=== PATIENT | male | born 1965 | race Asian ===

== ENCOUNTER 2022-06-16 03:49 | Inpatient (IN) | payer OTHER, SELFPAY ==
[2022-06-16] VITALS (21 sets, daily range): BP systolic 100–143; BP diastolic 53–94; PULSE 71–124; RESP 16–28; TEMP 36.3–37.3; O2SAT 93–99; BMI 22.8
--- NOTE | ~2022-06-16 | XR_ITS ---
EXAMINATION: XR chest 1V portable DATE: 06/19/2022 11:58 INDICATION: Pneumonia. TECHNIQUE: A single frontal view of the chest was obtained. COMPARISON: Chest CT 06/16/2022 FINDINGS: There is no pneumonia, pleural effusion, or pneumothorax. The heart size is normal. IMPRESSION: 1. No acute cardiopulmonary disease. Reviewed, dictated and finalized at location A. GRINDER
--- NOTE | ~2022-06-16 | CT_ITS ---
EXAMINATION:CT chest high resolution wo co DATE: 06/16/2022 09:58 INDICATION: Respiratory distress. TECHNIQUE: Computed tomography (CT) of the chest was performed without intravenous contrast. Automate d exposure control and iterative reconstruction technique were employed. The dose-length product (DLP ) was 159.50 mGy-cm. COMPARISON: Chest single view 06/16/2022 FINDINGS: Motion artifact is noted. There is mild atelectasis in left lower lobe. No pleural effusion . The heart size is normal. No pericardial effusion. There is mild thoracic spondylosis. There is mil d chronic anterior wedging of T11-L1 vertebral bodies. IMPRESSION: 1. No etiology for the patient's symptoms. Reviewed, dictated and finalized at location A. ERTY MANAGER
--- NOTE | ~2022-06-16 | XR_ITS ---
EXAMINATION: XR chest 1V portable Exam Date/Time: 06/16/2022 21:15 CLOTH SANDER HISTORY: SUDDEN shortness of breath Comparison: Same date at 5:10 AM. RESULT: Lines, tubes, and devices: None. Lungs and pleura: Clear. Cardiomediastinal silhouette: Stable. Other: No acute osseous or upper abdominal finding. IMPRESSION: No acute cardiopulmonary process. No significant interval change. Reviewed, dictated and finalized at location K. H SANDER
--- NOTE | ~2022-06-16 | US_ITS ---
EXAMINATION: US venous doppler UE DATE: 06/21/2022 13:21 INDICATION: Arm pain and swelling TECHNIQUE: Vasquez scale images with and without compression and Doppler images of the bilateral upper e xtremity veins were obtained. COMPARISON: None. FINDINGS: The right and left internal jugular vein, subclavian vein, axillary vein, brachial veins, basilic vei n, radial vein, and ulnar vein are patent. There is thrombosis of bilateral cephalic veins. IMPRESSION: 1. Bilateral cephalic vein thrombosis. Reviewed, dictated and finalized at location A. CULTURE TEACHER
--- NOTE | ~2022-06-16 | XR_ITS ---
EXAMINATION: XR chest 1V portable DATE: 06/16/2022 05:45 INDICATION: Shortness of breath. TECHNIQUE: A single frontal view of the chest was obtained. COMPARISON: None. FINDINGS: The chest demonstrates clear lungs without pneumonia, pleural effusion, or pneumothorax. Th e heart size is normal. IMPRESSION: 1. No acute cardiopulmonary disease. Reviewed, dictated and finalized at location A. ER OPERATOR
--- NOTE | ~2022-06-16 | CT_ITS ---
EXAMINATION: CT abdomen pelvis wo con DATE: 06/16/2022 09:58 INDICATION: Respiratory distress. Diarrhea. TECHNIQUE: Computed tomography (CT) of the abdomen and pelvis was performed without intravenous contr ast. Automated exposure control and iterative reconstruction technique were employed. The dose-length product was 296.78 mGy-cm. COMPARISON: None. FINDINGS: The visualized portions of the lung bases demonstrate mild atelectasis in left lower lobe. No pleural effusion. Motion artifact is noted. The liver, gallbladder, spleen, pancreas, adrenal glan ds, and left kidney are normal. There is a 1.8 cm cyst in right kidney. There is no urolithiasis. The prostate is mildly enlarged. There are no dilated loops of bowel. The appendix is normal. There are no pathologically enlarged lymph nodes. There is no free intraperitoneal fluid. There is mild thoraco lumbar spondylosis. IMPRESSION: 1. No etiology for the patient's symptoms. Reviewed, dictated and finalized at location A. NT KILN OPERATOR
--- NOTE | ~2022-06-16 | CT_ITS ---
EXAMINATION: CTA chest PE protocol DATE: 06/16/2022 23:31 INDICATION: Shortness of breath. Tachycardia. TECHNIQUE: Computed tomography angiography (CTA) of the chest was performed with 100 mL Omnipaque-350 intravenous contrast timed to evaluate the pulmonary arteries. Coronal maximum intensity projection 3D-reconstructions were created by the technologist. Automated exposure control and iterative reconst ruction technique were employed. The dose-length product was 239.32 mGy-cm. COMPARISON: Chest CT 06/16/2022 FINDINGS: There is mild emphysema. Motion artifact is noted. There is mild atelectasis bilaterally. T here are mild groundglass opacities in the upper lobes. No pleural effusion. The heart size is normal . No pericardial effusion. Calcified mediastinal lymph nodes are consistent with old granulomatous di sease. There is no pulmonary embolus. There is mild thoracic spondylosis. There is mild chronic anter ior wedging of T12-L2 vertebral bodies. IMPRESSION: 1. No pulmonary embolus. Sensitivity is severely decreased by motion artifact. 2. Mild emphysema. 3. New mild groundglass opacities in the upper lobes, consistent with atelectasis versus pneumonia. Reviewed, dictated and finalized at location A. ER FINISHER IMPRESSION: 1. No pulmonary embolus. Sensitivity is severely decreased by motion artifact. 2. Mild emphysema. 3. New mild groundglass opacities in the upper lobes, consistent with atelectas is versus pneumonia.
[2022-06-16] MEDS: IPRATROPIUM BR 0.02% INH SOLN 0.5 MG/2.5 ML VIAL INHALATION (04:08)
[2022-06-16] MEDS: ALBUTEROL SULFATE NEB 2.5 MG/3 ML INH INHALATION (04:08)
--- NOTE | 2022-06-16 04:10 | ADMGEN ---
This patient, Fuentes Yañez, was admitted to Medical Room 243-. Patient/family oriented to hospital policies and general routines including ID bracelet, bed and alarms, visiting hours, pain management, procedures, bathroom and other care routines, personal items, smoking policy, room service/diet, and visiting hours. Information on how to activate the Rapid Response Team has been discussed. Patient/Family are encouraged to report perceived risks to care and to ask questions if they do not understand what they are told or what they should do.
--- NOTE | 2022-06-16 04:32 | ECG_ITS ---
Measurements Intervals [place] Rate: 118 P: 75 IN: 112 QRS: 82 QRSD: 98 T: 71 QT: 351 QTc: 492 Interpretive Statements SINUS TACHYCARDIA WITH SHORT IN INTERVAL POSSIBLE LEFT ATRIAL ENLARGEMENT INCOMPLETE RIGHT BUNDLE BRANCH BLOCK ABNORMAL ECG NO PREVIOUS ECG AVAILABLE FOR COMPARISON Electronically Signed On 06-16-2022 9:19:24 ASSISTANT ELEMENTARY TEACHER by Osito Bowen D.O.
--- NOTE | 2022-06-16 04:32 | PM.IMHP ---
H&P: HPI History of Present Illness Date/Time: 06/16/22 04:32 Chief Complaint: shortness of breath Narrative: This is a 56-year-old male with known significant past medical history, tobacco dependence, patient is a current everyday smoker of 1 pack a day was on his way back to [place] from [place] after participating in some sort of celebration on his way back became suddenly ill with shortness of breath and cough and presented to outside hospital was transferred to our facility. Patient has been in his usual state of health denies any fevers, rigors, chills, fevers, nausea, vomiting, abdominal pain, diarrhea, calves pain, no dizziness, no lightheadedness, no near syncope, no syncope, no chest pain. patient has had a cough which is wet but no sputum production says that has some a scanty sputum which is clear. Patient had a normal D-dimer at outside hospital and tested negative for COVID-19. Patient is been admitted for further evaluation management and treatment. Review of Systems Review of Systems: Sudden onset of shortness of breath, cough. Constitutional: Constitutional: Denies chills, Denies fever(s), Denies night sweats and Denies poor appetite Eyes: Eyes: Denies change in vision ENT: Denies dysphagia, Denies vertigo, Denies dizziness and Denies odynophagia Cardiovascular: Cardiovascular: Denies chest pain, Denies irregular heart rhythm, Denies leg edema, Denies lightheadedness and Denies palpitations Respiratory: Respiratory: Denies change in phlegm color, Reports chest congestion, Reports cough, Denies excessive phlegm production, Reports pain on inspiration, Reports dyspnea and Reports wheezing Gastrointestinal: Gastrointestinal: Denies abdominal pain, Denies dyspepsia, Denies heartburn, Denies diarrhea, Denies nausea and Denies vomiting Genitourinary: Genitourinary: Reports no additional male genitourinary complaints and Reports as per HPI Musculoskeletal: Musculoskeletal: Denies back pain, Denies myalgias, Denies joint swelling, Denies limited range of motion and Denies muscle weakness Integumentary/Breasts: Skin/Breast: Denies rash Neurologic: Denies vertigo, Denies dizziness, Denies focal weakness and Denies Sensory deficit (Neuro) Psychiatric: Psychiatric: Reports no additional psychiatric complaints and Reports as per HPI Endocrine: Endocrine: Denies cold intolerance, Denies flushing, Denies heat intolerance, Denies polyphagia, Denies polydipsia and Denies palpitations Hematologic/Lymphatic: Hematologic/Lymphatic: Reports no additional hematologic/lymphatic complaints and Reports as per HPI Allergic/Immunologic: Allergic/Immunologic: Reports no additional allergic/immunologic complaints and Reports as per HPI [facility] Family History Family History (Updated 06/16/22 @ 04:13 by Mesha Alvarado RN) Father Cerebrovascular accident Diabetes mellitus Mother Diabetes mellitus Social History Social History Smoking packs per day: 0.5 Smoking cigarettes per day: 10.0 Smoking status: Current every day smoker Alcohol intake: current Drinks per week: 2 Substance use: never Lack of Transportation: No Lack of Food: Never True Current Housing: I Have Housing Concerned About Future Housing: No Difficulty Paying Gas/Electric Bills: No Difficulty Paying for Meds: No Currently Unemployed: No Education: Associate Degree Difficulty w/ Childcare or Family Care: No Spiritual care concerns: No Meds Home Medications and Allergies Home Medications Medication Instructions Recorded Confirmed Type No Home Medications 06/16/22 06/16/22 History Allergies Allergy/AdvReac Type Severity Reaction Status Date / Time No Known Allergies Allergy Verified 06/16/22 04:43 Vital Signs Vital Signs - 24 hr 06/16/22 04:20 06/16/22 04:02 06/16/22 04:08 Temperature 98.1 F Pulse Rate 107 H 99 Respiratory Rate 22 H 22 H Blood Pressure 143/94 H Pulse Oximetry
[2022-06-16] MEDS: IPRATROPIUM BR 0.02% INH SOLN 0.5 MG/2.5 ML VIAL 1.5 MG INHALATION (04:38)
[2022-06-16] MEDS: ALBUTEROL SULFATE NEB 2.5 MG/3 ML INH 10 MG INHALATION (04:38)
[2022-06-16 05:28] LABS: Basophils Absolute Auto 0.1 K/mm3 (0.0-0.1); Basophils Percent Auto 0.4 % (0.2-1.2); Hematocrit 45.4 % (42.0-52.0); Hemoglobin 14.6 g/dL (14.0-18.0); Immature Granulocyte Absolute 0.06 K/mm3 (0.00-0.031); Immature Granulocyte Percent A 0.4 % (0-0.5); Lymphocytes Absolute Auto 0.76 K/mm3 (0.9-3.2); Lymphocytes Percent Auto 5.3 % (18.3-44.2); Mean Corpuscular HGB Conc 32.2 g/dl (32-36); Mean Corpuscular Volume 96.4 fl (80-100); Mean Platelet Volume 11.1 fl (7.4-10.4); Monocytes Absolute Auto 0.2 K/mm3 (0.1-0.6); Monocytes Percent Auto 1.3 % (2.6-8.5); Neutrophils Absolute Auto 13.2 K/mm3 (1.3-6.7); Neutrophils Percent Auto 92.6 % (45.5-73.1); Platelet Count Result 222 k/mm3 (150-375); Red Blood Count 4.71 M/mm3 (4.6-6.20); White Blood Count 14.2 K/mm3 (4.5-10.0)
[2022-06-16 05:34] LABS: Anion Gap 16 mmol/L (8-16); Blood Urea Nitrogen 13 mg/dL (9-20); Calcium 8.6 mg/dL (8.4-10.2); Carbon Dioxide 17 mmol/L (22-30); Chloride 105 mmol/L (98-107); Estimated CRCL calculation 111 ml/min; Estimated Glomerular Filt Rate > 60; Glucose 172 mg/dL (65-110); Potassium 4.1 mmol/L (3.4-5.0); Sodium 138 mmol/L (137-145)
[2022-06-16] MEDS: methylPREDNISolone SOD SUCC 125 MG VIAL IV PUSH (05:51)
[2022-06-16 06:09] LABS: Influenza A QL RT-PCR Negative (Negative); Influenza B QL RT-PCR Negative (Negative); SARS-CoV-2 RNA PCR Negative
[2022-06-16 06:19] LABS: Lactic Acid Reflex 5.5 mmol/L (0.7-2.0)
[2022-06-16] MEDS: SODIUM CHLORIDE 0.9% IV 1,000 ML 999 ML IV CONT (06:35)
[2022-06-16 08:00] LABS: Procalcitonin 0.1 ng/mL
[2022-06-16 08:17] LABS: Reflex Lactic Acid Yes or No Add Lactic
[2022-06-16 08:55] LABS: Bacteria Urine Trace /hpf; Mucus Urine Rare /lpf; RBC Urine 0-2 /hpf (0-2); WBC Urine 0-3 /hpf
[2022-06-16 09:00] LABS: Appearance Urine Clear (Clear); Bilirubin Urine Negative (Negative); Blood Urine Trace-lysed (Negative); Color Urine Yellow (Yellow); Glucose Urine UA 1+ mg/dL (Negative); Ketones Urine Trace mg/dL (Negative); Leukocyte Esterase Ur Negative LEU/UL (Negative); Nitrate Urine Negative (Negative); Protein Urine Negative (Negative); Specific Grav Ur 1.025 (1.001-1.035); Urobilinogen Urine 0.2 mg/dL (<2.0)
--- NOTE | 2022-06-16 09:03 | PM.IMPN ---
Progress Note: A&P Assessment and Plan (1) Acute respiratory failure with hypoxia: Code(s): J96.01 - Acute respiratory failure with hypoxia Status: Acute Assessment and Plan: On supplemental oxygen try and keep oxygen saturation 94% Patient's O2 increased to 4 L to maintain saturation in the 90s. CT chest abdomen and pelvis no acute findings. CTA negative BNP 283 Procalcitonin 0.1 UA: Negative Troponin negative Sputum culture ordered EKG revealed sinus tachycardia, possible left atrial enlargement, incomplete RBBB Echo pending D-dimer .28 Group a strep PCR: EKG revealed sinus tachycardia, possible left atrial enlargement, incomplete RBBB ABG critical values: PO2 46.3, O2 sat 81.3, oxyhemoglobin 81.4 ---patient on 4 L of O2 Consulted Wilberto and he recommended Rocephin, doxy and vancomycin Pulmonology ordered MRSA culture and RSV; wants repeat COVID in flu tomorrow CBC CMP ordered for morning Patient moved to IMU room 211 (2) COPD with acute exacerbation: Code(s): J44.1 - Chronic obstructive pulmonary disease with (acute) exacerbation Status: Acute Assessment and Plan: admit to regular medical floor breathing treatments every 4 hours and p.r.n. breathing treatments every 2 hours Methylprednisolone sodium succinate 60 mg IV push q.8 hours systemic steroids supplemental oxygen to keep oxygen saturation 94% (3) Tobacco dependence: Code(s): F17.200 - Nicotine dependence, unspecified, uncomplicated Status: Acute Assessment and Plan: nicotine patch as needed Time Spent With Patient Time with patient: Greater than 35 minutes Subjective Date/time seen: 06/16/22 09:03 Interval history: 06/16/22 @ 0900 56-year-old man with a history of chronic tobacco use patient smokes 1 pack of cigarettes per day. Patient denies IV drug use and street drug use. Occasionally drinks alcohol. Patient states that he has been short of breath since 06/13/2022 it has progressively worsened over the past several days. He has been experiencing orthopnea, shortness of breath while standing, sitting, and walking. Patient has rattling when he breathes that is audible when interviewing the patient he states that this started on 06/14/2022. Patient does have a nonproductive wet cough and a sore throat. Patient had experienced some diarrhea for couple days but is not having it today. Patient states that he has had an increase of urinary frequency without dysuria. Denies fever. Review of Systems Review of Systems: All systems reviewed & are unremarkable except as noted in HPI and below Exam Narrative: GENERAL: Acute distress, uncomfortable HENMT: moist mucous membranes, no JVD, poor dentition EYES: EOM intact b/l, PERRL NECK: no lymphadenopathy RESPIRATORY: Diffuse respiratory crackles CARDIO: RRR GI: soft, nontender, bowel sounds present SKIN/NAILS: no rashes, no nail clubbing or splinter hemorrhages present EXTREMITIES: no edema, redness or tenderness Objective Data Vital Signs Vital Signs: Vital Signs - 24 hr 06/16/22 04:20 06/16/22 04:02 06/16/22 04:08 Temperature 98.1 F Pulse Rate 107 H 99 Respiratory Rate 22 H 22 H Blood Pressure 143/94 H Pulse Oximetry 96 96 Oxygen Delivery Nasal Cannula Oxygen Flow Rate 2 Fraction of Inspired Oxygen 06/16/22 04:38 06/16/22 05:17 06/16/22 06:24 Temperature Pulse Rate 109 H 109 H 121 H Respiratory Rate 22 H 22 H Blood Pressure Pulse Oximetry 94 Oxygen Delivery Nasal Cannula Oxygen Flow Rate 2 Fraction of Inspired Oxygen 28 Intake/Output Intake/Output: Intake & Output 06/13/22 06/14/22 06/15/22 06/16/22 23:59 23:59 23:59 23:59 Intake Total 1150 Output Total 400 Balance 750 Meds/Results Medications: Active Medications Generic Name Dose Route Start Last Admin Trade Name Freq PRN Reason Stop Dose Admin Acetaminophen 650 mg 06/16/22 04:29 Acetaminophen 325
[2022-06-16 09:07] LABS: Add Urine Microscopic? YES
[2022-06-16 09:12] LABS: Lactic Acid 9.1 mmol/L (0.7-2.0)
[2022-06-16 09:22] LABS: Troponin I < 0.012 ng/mL (0.000-0.034)
[2022-06-16] MEDS: DOXYCYCLINE 100 MG/NS 100 ML 100 MG/100 ML BAG IVPB (10:20)
[2022-06-16] MEDS: cefTRIAXone 2 GM in SODIUM CHLORIDE 0.9% IV 100 ML 200 ML IVPB (10:20)
--- NOTE | 2022-06-16 10:48 | ECHO_ITS ---
Patient Info Name: Fuentes Yañez Age: 56 years : 1965 Gender: Male Ht: 72 in Wt: 168 lbs BSA: 1.97 m2 HR: 107 bpm BP: 116 / 65 mmHg Heart Rhythm: Sinus Rhythm Exam Date: 06/16/2022 1:37 PM Exam Location: [facility] Patient Status: Inpatient Admit Date: 06/16/2022 Staff Ordering Physician: Elliott Lenz MD Yard Operator: Ed Armijo, JENNIFER, RT Attending Provider: Sathish Amanda MD Referring Physician: Delfin [place]; Exam Type: CA echo doppler color flow Study Info Indications R06.02 - Shortness of breath Complete two-dimensional, color flow and Doppler transthoracic echocardiogram is performed. Strain analysis performed. Summary 1. Complete two-dimensional, color flow and Doppler transthoracic echocardiogram is performed. 2. Left ventricular chamber dimension is normal. 3. Left ventricular systolic function is hyperdynamic, estimated at >70%. 4. There is no increased left ventricular wall thickness. 5. The left ventricular diastolic function is abnormal. Left Ventricle Left ventricular chamber dimension is normal. Left ventricular systolic function is hyperdynamic, estimated at >70%. There is no increased left ventricular wall thickness. The left ventricular diastolic function is abnormal. Right Ventricle Right ventricular chamber dimension is normal. Right ventricular systolic function is normal. Left Atria Left atrial chamber dimension is normal. Right Atria Right atrial chamber dimension is normal. Atrial Septum Intact interatrial septum visualized by color flow imaging. Aortic Valve The aortic valve is not well visualized. There is no aortic valve stenosis. There is trace aortic valve regurgitation. Pulmonic Valve The pulmonic valve is not well visualized. There is no pulmonic valve stenosis. Mitral Valve The mitral valve has normal leaflets. There is no mitral valve stenosis. There is trace mitral valve regurgitation. Tricuspid Valve The tricuspid valve leaflets are normal. There is no significant tricuspid valve stenosis. There is trace tricuspid valve regurgitation. Pericardium/Pleural The pericardium appears normal. There is no pericardial effusion. Inferior Vena Cava Normal inferior vena cava with >50% collapse upon inspiration consistent with normal right atrial pressure, 5 mmHg. Aorta The aortic root size at the sinus of Valsalva is not well visualized. Tricuspid Valve Name Value Normal Estimated PAP/RSVP RA Pressure 5 mmHg <=5 Report Signatures
--- NOTE | 2022-06-16 11:03 | ECG_ITS ---
Measurements Intervals [place] Rate: 108 P: 72 IA: 148 QRS: 79 QRSD: 97 T: 76 QT: 273 QTc: 366 Interpretive Statements SINUS TACHYCARDIA NONSPECIFIC T-WAVE ABNORMALITY- INFERIOR LEADS BASELINE ARTIFACT- V1 ABNORMAL ECG COMPARED TO ECG 06/16/2022 05:06:29 T-WAVE ABNORMALITY NOW PRESENT Electronically Signed On 06-16-2022 14:06:52 PUBLIC HEALTH REPRESENTATIVE by Osito Bowen D.O.
[2022-06-16 11:23] LABS: Alveolar/Arterial O2 Gradient 143.3 mmHg; Fractional Inspired Oxygen 32 %; HCO3 ABG 18.4 mEq/l (22.0-26.0); Oxygen Content ABG 16.3 %vol (16.0-22.0); PO2 FiO2 Ratio Arterial Blood 1.45 %; Total Hemoglobin 14.3 g/dL (12.0-18.0); pH ABG 7.363 (7.350-7.450)
[2022-06-16 11:30] LABS: Oxygen Saturation ABG 81.3 % (95.0-100.0); Oxyhemoglobin 81.4 % THb (90.0-100.0); PO2 ABG 46.3 mmHg (80.0-100.0)
[2022-06-16 11:31] LABS: Device NASAL CANNULA; Modified Allen's Test Pass; Site Drawn RIGHT RADIAL
--- NOTE | 2022-06-16 11:44 | PM.CNPUL ---
Assessment and Plan Assessment and plan (1) Acute respiratory failure with hypoxia: Code(s): J96.01 - Acute respiratory failure with hypoxia Status: Acute Assessment and Plan: this 56-year-old man with a history of MS currently on no immunosuppressive agents presented with acute respiratory illness characterized by cough, severe shortness of breath, with expiratory wheezing bilaterally, hypoxemia, and no evidence of infiltrates on chest imaging studies. Furthermore, screening for influenza and COVID-19 are negative. The patient's presentation in conjunction with the auscultatory findings and chest imaging studies suggest acute viral infection with bronchospasm. As stated the patient has been exposed to sick contacts approximately 3 days ago. He will be tested for RSV infection,, which could explain most symptoms and findings. patient was given nebulized Xopenex treatment with improvement of his bronchospasm. His gas exchange also improved following nebulized treatment. Plan: Will continue with nebulized short-acting bronchodilators q.4 hours and also p.r.n. treatment in between standard nebulized treatment if patient has dyspnea. Patient was switched to IV steroids. Oral prednisone has been discontinued. He will have ECG and echocardiogram. Will repeat testing for influenza and COVID-19 infection in a day or so. Continue with current antibiotics for now while waiting for MRSA screening. Doxycycline has been discontinued. The patient should be started on DVT prophylaxis. I would suggest to transfer patient to IMU for better monitoring of his respiratory status. (2) Tobacco dependence: Code(s): F17.200 - Nicotine dependence, unspecified, uncomplicated Status: Acute (3) History of multiple sclerosis: Code(s): G35 - Multiple sclerosis Status: Acute History of Present Illness History of Present Illness Consult date: 06/16/22 Chief complaint: pneumonia, covid negative Narrative: This 56-year-old man was admitted to the hospital with a 2 day history of progressively increasing shortness of breath. The patient has history of MS and had been on Tecfidera twice daily until mid December of 2021. This man who is out of state and was in his usual state of health travelled to [place] from [place] for a wedding. He reportedly exposed to sick people with upper respiratory infection. Specifically his sister had an upper respiratory infection. The patient was driving back to his home state yesterday when he started to have intense cough. Cough had been mostly dry. He had no fever chills hemoptysis chest pain or palpitations. Few hours later, he started to complain of shortness of breath. The shortness of breath got progressively worse and the patient was evaluated at another nearby hospital where he underwent testing with chest X ray. He was found to be hypoxemic with elevated lactic acid and chest x-ray showing no active lung disease. The patient received IV steroids and nebulized short-acting bronchodilators. reportedly, his shortness of breath improved with nebulized short-acting bronchodilators. The patient was then transferred to this hospital. Currently, he has been complaining of shortness of breath but has no orthopnea, chest pain or palpitations. Chest imaging studies including CT without contrast were unremarkable. No CTA was done as patient had normal D-dimers at the other place. His BNP was not elevated when tested at the other hospital. His lactic acid was found again to be elevated. Abdominal and pelvic CT were unremarkable. The patient has been on treatment with oral steroids, nebulized short-acting bronchodilators and four antibiotics. Arterial blood gases showed severe hypoxemia but no evidence of hypercapnia. The patient has been a smoker for many years. He has had multiple sclerosis for years. Since December of this year, he has been on no immuno modulating medications. He has no
[2022-06-16] MEDS: LORazepam (*CRX) 0.5 MG TABLET PO (11:45)
[2022-06-16] MEDS: SODIUM CHLORIDE 0.9% IV 1,000 ML 75 ML IV CONT (11:45)
[2022-06-16] MEDS: ENOXAPARIN 40 MG/0.4 ML SYRINGE SUB-Q (11:47)
[2022-06-16 11:56] LABS: NT Pro B Type Natriuretic Pept 283 pg/mL (5-100)
[2022-06-16 12:22] LABS: Lactic Acid Reflex 5.1 mmol/L (0.7-2.0)
[2022-06-16 12:29] LABS: D Dimer 0.28 ug/mL (<0.48)
--- NOTE | 2022-06-16 13:56 | PC.NURSE ---
Pt assisted to restroom on 3L nasal cannula, worsening SOB upon ambulation, O2 increased to 4L, pt still had a hard time recovering when back in bed. Per Ambika CHAUDHARI and Dr. Lenz, pt should not be up ambulating until respiratory status is improving. Pt was educated on this and is not wanting to comply, states he needs to walk to the bathroom and have a few minutes . Is not willing to use urinal at bedside or be assisted to a bedside commode
[2022-06-16] MEDS: methylPREDNISolone SOD SUCC 125 MG VIAL 60 MG IV PUSH ×2 (14:26→21:16)
--- NOTE | 2022-06-16 14:33 | PC.NURSE ---
This patient, Fuentes Yañez, was transferred to [facility] on 06/16/22 at 1434. Personal belongings sent with patient. Report given to Alisha COLE. Appropriate documentation sent with patient.
--- NOTE | 2022-06-16 14:41 | PC.NURSE ---
This patient, Fuentes Yañez, was received from [ [phone]] on 06/16/22 at 1441. Patient/family oriented to unit policies and routines
[2022-06-16 15:58] LABS: Strep Group A RT-PCR Negative (Negative)
[2022-06-16 16:20] LABS: RSV RNA, RT-PCR Negative (Negative)
[2022-06-16 17:12] LABS: Lactic Acid Reflex 2.1 mmol/L (0.7-2.0)
[2022-06-16 20:05] LABS: Lactic Acid Reflex 2.6 mmol/L (0.7-2.0)
--- NOTE | 2022-06-16 22:33 | P.PNCROSS_ITS ---
Event Note Event Note Event Note: Multiple calls from the patient's RN this evening with patient complaining ongo ing, significant shortness of breath with an otherwise negative workup. He has been tachycardic in the 1 teens and tachypneic in the mid to upper 20s. Repeat chest x-ray was unremarkable. Given his recent travel (although he did have a negative D-dimer) CTA of the chest has been ordered to rule out pulmonary embolism as there is not any other evidence to suggest why he would be feeling so short of breath.
[2022-06-16 22:53] LABS: Reflex Lactic Acid Yes or No Add Lactic
[2022-06-17] VITALS (24 sets, daily range): BP systolic 94–145; BP diastolic 40–78; PULSE 66–102; RESP 18–26; TEMP 36–36.8; O2SAT 94–98
[2022-06-17] MEDS: methylPREDNISolone SOD SUCC 125 MG VIAL 60 MG IV PUSH ×3 (06:19→21:08)
[2022-06-17 08:08] LABS: Basophils Percent Auto 0.1 % (0.2-1.2); Hematocrit 40.1 % (42.0-52.0); Hemoglobin 13.5 g/dL (14.0-18.0); Immature Granulocyte Absolute 0.25 K/mm3 (0.00-0.031); Immature Granulocyte Percent A 0.9 % (0-0.5); Lymphocytes Absolute Auto 1.11 K/mm3 (0.9-3.2); Lymphocytes Percent Auto 4.2 % (18.3-44.2); Mean Corpuscular HGB Conc 33.7 g/dl (32-36); Mean Corpuscular Hemoglobin 31.7 pg (26-34); Mean Corpuscular Volume 94.1 fl (80-100); Mean Platelet Volume 10.7 fl (7.4-10.4); Monocytes Absolute Auto 1.1 K/mm3 (0.1-0.6); Monocytes Percent Auto 4.3 % (2.6-8.5); Neutrophils Absolute Auto 24.2 K/mm3 (1.3-6.7); Neutrophils Percent Auto 90.5 % (45.5-73.1); Platelet Count Result 227 k/mm3 (150-375); Red Blood Count 4.26 M/mm3 (4.6-6.20); Red Cell Distribution Width 13.7 % (11.5-14.5); White Blood Count 26.7 K/mm3 (4.5-10.0)
[2022-06-17 08:28] LABS: Alanine Aminotransferase 27 U/L (6-50); Albumin Level 4.1 g/dL (3.5-5.1); Alkaline Phosphatase 82 U/L (38-126); Anion Gap 6 mmol/L (8-16); Aspartate Amino Transferase 32 U/L (17-59); Bilirubin,Total 0.3 mg/dL (0.2-1.3); Blood Urea Nitrogen 20 mg/dL (9-20); Calcium 8.8 mg/dL (8.4-10.2); Carbon Dioxide 22 mmol/L (22-30); Chloride 107 mmol/L (98-107); Estimated CRCL calculation 111 ml/min; Estimated Glomerular Filt Rate > 60; Glucose 136 mg/dL (65-110); Potassium 4.2 mmol/L (3.4-5.0); Sodium 135 mmol/L (137-145)
--- NOTE | 2022-06-17 08:53 | PM.PNPUL ---
Progress Note: A&P Assessment and Plan (1) Acute respiratory failure with hypoxia: Code(s): J96.01 - Acute respiratory failure with hypoxia Status: Acute Assessment and Plan: This 56-year-old man with a history of smoking for many years, history of multiple sclerosis has been treated for acute respiratory failure with hypoxemia and essentially negative chest imaging studies and evidence of severe bronchospasm on physical exam. Tests for influenza COVID RSV all negative. Has been on antibiotics and IV steroids and nebulized short-acting bronchodilators every 4 hours. On physical exam today he still has wheezing but there is better air entry. Tiny ground-glass infiltrates on last chest CT of unclear significance. There is mild emphysema on chest CT. Most likely diagnosis is viral illness with severe bronchitis /bronchospasm in a smoker patient who has evidence of mild emphysema on chest x-ray. Plan: Will continue with the current regimen of IV steroids and nebulized short-acting bronchodilators for now. Continue with DVT prophylaxis. Vancomycin was discontinued and the patient was started on Zithromax to cover atypicals. (2) COPD with acute exacerbation: Code(s): J44.1 - Chronic obstructive pulmonary disease with (acute) exacerbation Status: Acute (3) Tobacco dependence: Code(s): F17.200 - Nicotine dependence, unspecified, uncomplicated Status: Acute (4) History of multiple sclerosis: Code(s): G35 - Multiple sclerosis Status: Acute Subjective Date/time seen: 06/17/22 08:53 Had more shortness of breath last night. Underwent repeat chest CTA that showed no pulmonary emboli. Small ground-glass opacities in the upper lobes since last chest CT. Currently doing better. No fever chills hemoptysis. Review of Systems Review of Systems: All systems reviewed & are unremarkable except as noted in HPI and below Exam Narrative: GENERAL APPEARANCE: Well developed, well nourished, alert and cooperative, and appears to be in mild respiratory distress while on supplemental oxygen. SKIN: Inspection of the skin reveals no rashes, ulcerations or petechiae. HEENT: Sclerae anicteric and conjunctivae pink and moist. Extraocular movements were intact and pupils were equal, round, and reactive to light. The oral mucosa, hard and soft palate, tongue and posterior pharynx were normal. NECK: Supple. There was no thyroid enlargement, and no tenderness, or masses were felt. CHEST: Normal AP diameter and normal contour without any kyphoscoliosis. LUNGS: Auscultation of the lungs revealed diffuse expiratory wheezing bilaterally CARDIAC: There was a regular rate and rhythm without any murmurs, gallops, rubs. ABDOMEN: Soft and nontender with normal bowel sounds. There was no organomegaly. LYMPH NODES: No lymphadenopathy was appreciated in the neck. EXTREMITIES: No cyanosis, clubbing or edema. NEUROLOGIC: Alert and oriented x 3. Normal affect. Objective Data Vital Signs Vital Signs: Vital Signs - 24 hr 06/16/22 10:54 06/16/22 11:00 06/16/22 11:09 Temperature 36.3 C L Pulse Rate 71 103 H Respiratory Rate 20 22 H Blood Pressure 116/55 L Pulse Oximetry 93 97 Oxygen Delivery Nasal Cannula Oxygen Flow Rate 4 Fraction of Inspired Oxygen 06/16/22 11:14 06/16/22 12:00 06/16/22 14:25 Temperature 37.3 C Pulse Rate 99 106 H 104 H Respiratory Rate 20 16 Blood Pressure 132/53 L Pulse Oximetry 97 Oxygen Delivery Oxygen Flow Rate Fraction of Inspired Oxygen 06/16/22 15:42 06/16/22 16:00 06/16/22 16:47 Temperature Pulse Rate 115 H 91 Respiratory Rate 20 Blood Pressure Pulse Oximetry 98 Oxygen Delivery Nasal Cannula Oxygen Flow Rate 3 Fraction of Inspired Oxygen 06/16/22 16:00 06/16/22 18:00 06/16/22 20:00 Temperature 36.6 C 36.8 C Pulse Rate 98 110 H 90 Respiratory Rate 18 22 H Blood Pressure 100/71 120/72 Pulse Oximetry 99 9
[2022-06-17] MEDS: ENOXAPARIN 40 MG/0.4 ML SYRINGE SUB-Q (09:13)
[2022-06-17] MEDS: cefTRIAXone 2 GM in SODIUM CHLORIDE 0.9% IV 100 ML 200 ML IVPB (09:14)
--- NOTE | 2022-06-17 10:55 | P.PNIM_ITS ---
Progress Note: A&P Assessment and Plan (1) Acute respiratory failure with hypoxia: Code(s): J96.01 - Acute respiratory failure with hypoxia Status: Acute Assessment and Plan: Presented to the ED with c/o SOB and cough. He reports recent sick contacts. He required 2-4 L supplemental O2 and was transferred to IMU for worsening dyspnea. Presumed secondary to acute viral infection/bronchitis and possible underlying COPD * CT chest abdomen and pelvis no acute findings. * CTA negative for acute PE. d-dimer 0.28 * Chest x-ray showed no acute pulmonary disease. * BNP 283, troponin negative, EKG sinus tach with possible LAE and incomplete RBBB * Echocardiogram with normal LV systolic function, hyperdynamic EF 70%, ungraded diastolic dysfunction. * Procalcitonin 0.1 * Troponin negative * Sputum culture ordered but unable to be obtained as of yet. * COVID19, RSV, Influenza A/B negative. * Strep PCR negative. * 06/16/22 ABG critical values: PO2 46.3, O2 sat 81.3, oxyhemoglobin 81.4 ---patient on 4 L of O2 * Continue empiric antibiotics- currently IV Rocephin and azithromycin. IV vancomycin stopped. MRSA nasal swab pending. * Pulmonology consulted and appreciate recommendations. * Supportive care. * Wean O2 to keep sats>92%. (2) COPD with acute exacerbation: Code(s): J44.1 - Chronic obstructive pulmonary disease with (acute) exacerbation Status: Acute Assessment and Plan: Presumed underlying COPD. No PFTs available and he does not endorse prior histor y, however, he is a current, everyday smoker * CXR and CT chest with mild emphysema changes. admit to regular medical floor * Continue scheduled short-acting bronchodilators every 4 hours and p.r.n. b reathing treatments every 2 hours * Continue Methylprednisolone sodium succinate 60 mg IV push q.8 hours * Physical Therapist Assistant to quit smoking * On empiric antibiotics as above. * Pulmonology following. (3) Tobacco dependence: Code(s): F17.200 - Nicotine dependence, unspecified, uncomplicated Status: Chronic Assessment and Plan: career counselor to quit (4) History of multiple sclerosis: Code(s): G35 - Multiple sclerosis Status: Chronic Assessment and Plan: H/O MS, not in acute exacerbation. had been treated with Tecfidera twice daily until mid December of 2021 Plan CODE STATUS: FULL CODE Disposition: Estimated LOS 3 days, discharge home when respiratory status improved. Time Spent With Patient Time with patient: 25 - 35 minutes Subjective Date/time seen: 06/17/22 10:55 Interval history: He reports exertional dyspnea and nonproductive cough. His appetite is fair. No chest pain, palpitations, N/V/D or abd pain. Review of Systems Review of Systems: All systems reviewed & are unremarkable except as noted in HPI and below Exam Narrative: General: No acute distress.?Tired appearing adult male. Sitting up in bed. O2 per NC. Mental Status/Psych: Awake, alert and oriented x4 with clear speech. Neutral mood and affect. Pleasant and cooperative. Skin: Skin fair, warm, dry and intact without rashes or lesions. Fair turgor.? HEENT: Normocephalic. Sclera is non-icteric. EOM intact. Pupils equal and round Grossly normal hearing. Oral mucosa moist. Neck: Supple. Trachea midline. No JVD. Heart: S1 and S2 regular rate and rhythm. No murmurs, gallops or rubs auscultated. Chest: Respirations labored during conversation 26 bpm. Speaking in brief sentences. Lung sounds diminished with wheezing in all mayo. Abdomen: Soft, round and n
--- NOTE | 2022-06-17 10:55 | PM.IMPN ---
Progress Note: A&P Assessment and Plan (1) Acute respiratory failure with hypoxia: Code(s): J96.01 - Acute respiratory failure with hypoxia Status: Acute Assessment and Plan: Presented to the ED with c/o SOB and cough. He reports recent sick contacts. He required 2-4 L supplemental O2 and was transferred to IMU for worsening dyspnea. Presumed secondary to acute viral infection/bronchitis and possible underlying COPD CT chest abdomen and pelvis no acute findings. CTA negative for acute PE. d-dimer 0.28 Chest x-ray showed no acute pulmonary disease. BNP 283, troponin negative, EKG sinus tach with possible LAE and incomplete RBBB Echocardiogram with normal LV systolic function, hyperdynamic EF 70%, ungraded diastolic dysfunction. Procalcitonin 0.1 Troponin negative Sputum culture ordered but unable to be obtained as of yet. COVID19, RSV, Influenza A/B negative. Strep PCR negative. 06/16/22 ABG critical values: PO2 46.3, O2 sat 81.3, oxyhemoglobin 81.4 ---patient on 4 L of O2 Continue empiric antibiotics- currently IV Rocephin and azithromycin. IV vancomycin stopped. MRSA nasal swab pending. Pulmonology consulted and appreciate recommendations. Supportive care. Wean O2 to keep sats>92%. (2) COPD with acute exacerbation: Code(s): J44.1 - Chronic obstructive pulmonary disease with (acute) exacerbation Status: Acute Assessment and Plan: Presumed underlying COPD. No PFTs available and he does not endorse prior history, however, he is a current, everyday smoker CXR and CT chest with mild emphysema changes. admit to regular medical floor Continue scheduled short-acting bronchodilators every 4 hours and p.r.n. breathing treatments every 2 hours Continue Methylprednisolone sodium succinate 60 mg IV push q.8 hours Food Production Associate to quit smoking On empiric antibiotics as above. Pulmonology following. (3) Tobacco dependence: Code(s): F17.200 - Nicotine dependence, unspecified, uncomplicated Status: Chronic Assessment and Plan: nurses' association counselor to quit (4) History of multiple sclerosis: Code(s): G35 - Multiple sclerosis Status: Chronic Assessment and Plan: H/O MS, not in acute exacerbation. had been treated with Tecfidera twice daily until mid December of 2021 Plan CODE STATUS: FULL CODE Disposition: Estimated LOS 3 days, discharge home when respiratory status improved. Time Spent With Patient Time with patient: 25 - 35 minutes Subjective Date/time seen: 06/17/22 10:55 Interval history: He reports exertional dyspnea and nonproductive cough. His appetite is fair. No chest pain, palpitations, N/V/D or abd pain. Review of Systems Review of Systems: All systems reviewed & are unremarkable except as noted in HPI and below Exam Narrative: General: No acute distress.?Tired appearing adult male. Sitting up in bed. O2 per NC. Mental Status/Psych: Awake, alert and oriented x4 with clear speech. Neutral mood and affect. Pleasant and cooperative. Skin: Skin fair, warm, dry and intact without rashes or lesions. Fair turgor.? HEENT: Normocephalic. Sclera is non-icteric. EOM intact. Pupils equal and round Grossly normal hearing. Oral mucosa moist. Neck: Supple. Trachea midline. No JVD. Heart: S1 and S2 regular rate and rhythm. No murmurs, gallops or rubs auscultated. Chest: Respirations labored during conversation 26 bpm. Speaking in brief sentences. Lung sounds diminished with wheezing in all mayo. Abdomen: Soft, round and non-tender to palpation.? Bowel sounds present in all 4 quadrants. Extremities:? Grossly normal ROM all extremities. No edema, erythema or calf tenderness. Radial and dorsalis pedis pulses +2 bilaterally. Neurological: No focal deficits. Cranial nerves 2-12 grossly intact.?Gait not tested. ? Objective Data Vital Signs Vital Signs: Vital Signs - 24 hr 06/16/22 11:00 06/16/22 11:09 06/16/22 11:14 Temperature Pulse Rate 103
[2022-06-17 20:53] LABS: Vancomycin Trough 5.1 ug/mL (10.0-20.0)
[2022-06-17] MEDS: NICOTINE (*PBKC) 21 MG PATCH 1 PATCH TRANSDERM (21:08)
[2022-06-17] MEDS: guaiFENesin 12 HR 600 MG TABCR PO (21:09)
[2022-06-18] VITALS (23 sets, daily range): BP systolic 130–154; BP diastolic 70–82; PULSE 63–102; RESP 18–28; TEMP 36.2–36.6; O2SAT 92–97
[2022-06-18] MEDS: methylPREDNISolone SOD SUCC 125 MG VIAL 60 MG IV PUSH ×3 (06:08→21:18)
[2022-06-18 07:09] LABS: Anion Gap 8 mmol/L (8-16); Blood Urea Nitrogen 24 mg/dL (9-20); Calcium 8.7 mg/dL (8.4-10.2); Carbon Dioxide 26 mmol/L (22-30); Chloride 104 mmol/L (98-107); Estimated CRCL calculation 111 ml/min; Estimated Glomerular Filt Rate > 60; Glucose 136 mg/dL (65-110); Potassium 4.2 mmol/L (3.4-5.0); Sodium 138 mmol/L (137-145)
[2022-06-18] MEDS: cefTRIAXone 2 GM in SODIUM CHLORIDE 0.9% IV 100 ML 200 ML IVPB (09:10)
[2022-06-18] MEDS: ENOXAPARIN 40 MG/0.4 ML SYRINGE SUB-Q (09:11)
[2022-06-18] MEDS: guaiFENesin 12 HR 600 MG TABCR PO ×2 (09:11→21:18)
[2022-06-18] MEDS: NICOTINE (*PBKC) 21 MG PATCH 1 PATCH TRANSDERM (09:13)
--- NOTE | 2022-06-18 09:35 | PM.PNPUL ---
Progress Note: A&P Assessment and Plan (1) Acute respiratory failure with hypoxia: Code(s): J96.01 - Acute respiratory failure with hypoxia Status: Acute Assessment and Plan: This 56-year-old man with a history of smoking for many years, history of multiple sclerosis has been treated for acute respiratory failure with hypoxemia and essentially negative chest imaging studies and evidence of severe bronchospasm on physical exam. Tests for influenza COVID RSV all negative. Has been on antibiotics and IV steroids and nebulized short-acting bronchodilators every 4 hours. On physical exam today he still has wheezing but there is better air entry. Most likely diagnosis is viral illness with severe bronchitis /bronchospasm in a smoker patient who has evidence of mild emphysema on chest x-ray. Plan: Will continue with the current regimen of IV steroids and nebulized short-acting bronchodilators for now. Continue with DVT prophylaxis. Out of bed to chair. (2) COPD with acute exacerbation: Code(s): J44.1 - Chronic obstructive pulmonary disease with (acute) exacerbation Status: Acute (3) Tobacco dependence: Code(s): F17.200 - Nicotine dependence, unspecified, uncomplicated Status: Chronic (4) History of multiple sclerosis: Code(s): G35 - Multiple sclerosis Status: Chronic Subjective Date/time seen: 06/18/22 09:35 Patient has no new respiratory symptoms. Remains on supplemental oxygen, receiving nebulized short-acting bronchodilator treatment. shortness of breath has improved over the last 48 hours. He is afebrile. Requested sleeping medicine. Has been on nicotine patch. Spends most of the day in bed. Exam Narrative: GENERAL APPEARANCE: Well developed, well nourished, alert and cooperative, and appears to be in mild respiratory distress while on supplemental oxygen. SKIN: Inspection of the skin reveals no rashes, ulcerations or petechiae. HEENT: Sclerae anicteric and conjunctivae pink and moist. Extraocular movements were intact and pupils were equal, round, and reactive to light. The oral mucosa, hard and soft palate, tongue and posterior pharynx were normal. NECK: Supple. There was no thyroid enlargement, and no tenderness, or masses were felt. CHEST: Normal AP diameter and normal contour without any kyphoscoliosis. LUNGS: Auscultation of the lungs revealed diffuse expiratory wheezing bilaterally, Better air entry compared to couple days ago. CARDIAC: There was a regular rate and rhythm without any murmurs, gallops, rubs. ABDOMEN: Soft and nontender with normal bowel sounds. There was no organomegaly. LYMPH NODES: No lymphadenopathy was appreciated in the neck. EXTREMITIES: No cyanosis, clubbing or edema. NEUROLOGIC: Alert and oriented x 3. Normal affect. Objective Data Vital Signs Vital Signs: Vital Signs - 24 hr 06/17/22 10:00 06/17/22 11:48 06/17/22 11:48 Temperature Pulse Rate 69 76 Respiratory Rate 20 Blood Pressure Pulse Oximetry 95 Oxygen Delivery Nasal Cannula Oxygen Flow Rate 2 Fraction of Inspired Oxygen 06/17/22 11:55 06/17/22 12:00 06/17/22 12:00 Temperature 36.0 C L Pulse Rate 81 78 102 H Respiratory Rate 20 20 Blood Pressure 127/65 Pulse Oximetry 96 Oxygen Delivery Oxygen Flow Rate Fraction of Inspired Oxygen 06/17/22 14:00 06/17/22 15:22 06/17/22 15:37 Temperature Pulse Rate 77 79 83 Respiratory Rate 20 20 Blood Pressure Pulse Oximetry Oxygen Delivery Oxygen Flow Rate Fraction of Inspired Oxygen 06/17/22 16:00 06/17/22 16:00 06/17/22 18:00 Temperature 36.3 C L Pulse Rate 100 66 87 Respiratory Rate 18 Blood Pressure 94/40 L Pulse Oximetry 97 Oxygen Delivery Oxygen Flow Rate Fraction of Inspired Oxygen 06/17/22 20:00 06/17/22 20:30 06/17/22 20:35 Temperature 36.7 C Pulse Rate 84 78 80 Respiratory Rate 22 H 18 18 Blood Pressure 138/56 L
--- NOTE | 2022-06-18 12:19 | PM.IMPN ---
Progress Note: A&P Assessment and Plan (1) Acute respiratory failure with hypoxia: Code(s): J96.01 - Acute respiratory failure with hypoxia Status: Acute Assessment and Plan: Presented to the ED with c/o SOB and cough. He reports recent sick contacts. He required 2-4 L supplemental O2 and was transferred to IMU for worsening dyspnea. Presumed secondary to acute viral infection/bronchitis, severe bronchospasm and presumed underlying COPD with smoking history and mild emphysema noted on CXR. CT chest abdomen and pelvis no acute findings. CTA negative for acute PE. d-dimer 0.28 Chest x-ray showed no acute pulmonary disease. BNP 283, troponin negative, EKG sinus tach with possible LAE and incomplete RBBB Echocardiogram with normal LV systolic function, hyperdynamic EF 70%, ungraded diastolic dysfunction. Procalcitonin 0.1 Troponin negative Sputum culture ordered but unable to be obtained to date due to lack of sputum. COVID19, RSV, Influenza A/B negative. Strep PCR negative. 06/16/22 ABG critical values: PO2 46.3, O2 sat 81.3, oxyhemoglobin 81.4 ---patient on 4 L of O2 Continue empiric antibiotics- currently IV Rocephin, started 06/16, and IV azithromycin, started 06/17. IV vancomycin stopped 06/17. MRSA nasal swab negative suggesting MRSA pneumonia unlikely. Pulmonology consulted and appreciate recommendations. Supportive care. Wean O2 to keep sats>92%. (2) COPD with acute exacerbation: Code(s): J44.1 - Chronic obstructive pulmonary disease with (acute) exacerbation Status: Acute Assessment and Plan: Presumed underlying COPD. No PFTs available and he does not endorse prior history, however, he is a current, everyday smoker CXR and CT chest with mild emphysema changes. admit to regular medical floor Continue scheduled short-acting bronchodilators every 4 hours and p.r.n. breathing treatments every 2 hours Continue Methylprednisolone sodium succinate 60 mg IV push q.8 hours, day 3 of systemic steroids smoking cessation counseling given. On empiric antibiotics as above. Pulmonology following. (3) Tobacco dependence: Code(s): F17.200 - Nicotine dependence, unspecified, uncomplicated Status: Chronic Assessment and Plan: Smoking cessation counseling given for 5 minutes.?? (4) History of multiple sclerosis: Code(s): G35 - Multiple sclerosis Status: Chronic Assessment and Plan: H/O MS, not in acute exacerbation. had been treated with Tecfidera twice daily until mid December of 2021 Plan CODE STATUS: FULL CODE Disposition: Inpatient, IMU status for respiratory monitoring. discharge destination: home to [place] when respiratory status improved. Time Spent With Patient Time with patient: 25 - 35 minutes Subjective Date/time seen: 06/18/22 12:19 Interval history: He reports his oxygen was removed this morning, however, he is feeling more short of breath. His cough is more productive, thick and white. He has been having trouble sleeping. He states he no longer wants to smoke, but needs one to poop. He is tearful when talking about his illness and is concerned about lung cancer, which his father had. He endorses using his incentive spirometer frequently. No fever, chills, rigors, diaphoresis, chest pain or palpitations. Review of Systems Review of Systems: All systems reviewed & are unremarkable except as noted in HPI and below Exam Narrative: General: Tearful. Sitting up in bed. O2 2L per NC. Mental Status/Psych: Awake, alert and oriented to person, place, and time. clear speech. Cooperative. Mildly anxious mood. Skin: warm, dry and intact without rashes or lesions. Fair turgor.? HEENT: Normocephalic. Sclera is non-icteric. Pupils equal and round. Oral mucosa moist. Neck: No JVD. Heart: S1 and S2 regular rate and rhythm. No murmurs, gallops or rubs auscultated. NSR/ST on telemetry without ectopy. Chest: Respirations 24
[2022-06-18] MEDS: LORazepam INJ (*CRX) 2 MG/ML VIAL 0.25 MG IV PUSH (13:41)
[2022-06-18 17:09] LABS: Hematocrit 41.6 % (42.0-52.0); Hemoglobin 13.9 g/dL (14.0-18.0); Mean Corpuscular HGB Conc 33.4 g/dl (32-36); Mean Corpuscular Hemoglobin 31.5 pg (26-34); Mean Corpuscular Volume 94.3 fl (80-100); Mean Platelet Volume 11.4 fl (7.4-10.4); Platelet Count Result 233 k/mm3 (150-375); Red Blood Count 4.41 M/mm3 (4.6-6.20); Red Cell Distribution Width 13.9 % (11.5-14.5)
[2022-06-18 17:35] LABS: Band Neutrophils Percent 4 % (0-6); Eosinophils Absolute Manual 0.22 K/mm3 (0.02-0.5); Eosinophils Percent Manual 1 % (0-4); Lymphocytes Absolute Manual 1.54 K/mm3 (1.1-4.5); Monocytes Absolute Manual 1.54 K/mm3 (0.1-0.90); Monocytes Percent Manual 7 % (3-9); Neutrophils Percent Manual 81 % (46-73); Platelet Estimate Adequate (Adequate); Total Cells Counted 100
[2022-06-18 17:36] LABS: Anisocytosis 1+ (NORMAL); Schistocytes None Seen (NORMAL)
[2022-06-18] MEDS: MELATONIN 5 MG TABLET PO (21:18)
[2022-06-19] VITALS (26 sets, daily range): BP systolic 125–160; BP diastolic 69–90; PULSE 64–101; RESP 16–24; TEMP 36–36.6; O2SAT 93–100
[2022-06-19 05:21] LABS: Anion Gap 6 mmol/L (8-16); Blood Urea Nitrogen 32 mg/dL (9-20); Calcium 8.5 mg/dL (8.4-10.2); Carbon Dioxide 27 mmol/L (22-30); Chloride 106 mmol/L (98-107); Estimated CRCL calculation 98 ml/min; Estimated Glomerular Filt Rate > 60; Glucose 143 mg/dL (65-110); Potassium 3.9 mmol/L (3.4-5.0); Sodium 139 mmol/L (137-145)
[2022-06-19] MEDS: methylPREDNISolone SOD SUCC 125 MG VIAL 60 MG IV PUSH (05:58)
[2022-06-19] MEDS: ACETAMINOPHEN 325 MG TABLET 650 MG PO (09:21)
[2022-06-19] MEDS: ENOXAPARIN 40 MG/0.4 ML SYRINGE SUB-Q (09:25)
[2022-06-19] MEDS: guaiFENesin 12 HR 600 MG TABCR PO ×2 (09:25→22:30)
[2022-06-19] MEDS: NICOTINE (*PBKC) 21 MG PATCH 1 PATCH TRANSDERM (09:25)
--- NOTE | 2022-06-19 09:37 | PM.IMPN ---
Progress Note: A&P Assessment and Plan (1) Acute respiratory failure with hypoxia: Code(s): J96.01 - Acute respiratory failure with hypoxia Status: Acute Assessment and Plan: Presented to the ED with c/o SOB and cough. He reports recent sick contacts. He required 2-4 L supplemental O2 and was transferred to IMU for worsening dyspnea. Presumed secondary to acute viral infection/bronchitis, severe bronchospasm and presumed underlying COPD with smoking history and mild emphysema noted on CXR. CT chest abdomen and pelvis no acute findings. CTA negative for acute PE. d-dimer 0.28 Chest x-ray showed no acute pulmonary disease. BNP 283, troponin negative, EKG sinus tach with possible LAE and incomplete RBBB Echocardiogram with normal LV systolic function, hyperdynamic EF 70%, ungraded diastolic dysfunction. Procalcitonin 0.1 Troponin negative Sputum culture ordered but unable to be obtained to date due to lack of sputum. COVID19, RSV, Influenza A/B negative. Strep PCR negative. 06/16/22 ABG critical values: PO2 46.3, O2 sat 81.3, oxyhemoglobin 81.4 ---patient on 4 L of O2 Continue empiric antibiotics- currently IV Rocephin, started 06/16, and IV azithromycin, started 06/17. He has been afebrile since admission and will discuss with Pulmonology transitioning to oral abx. IV vancomycin stopped 06/17. MRSA nasal swab negative suggesting MRSA pneumonia unlikely. Pulmonology consulted and appreciate recommendations. Supportive care. Wean O2 to keep sats>92%. (2) COPD with acute exacerbation: Code(s): J44.1 - Chronic obstructive pulmonary disease with (acute) exacerbation Status: Acute Assessment and Plan: Presumed underlying COPD. No PFTs available and he does not endorse prior history, however, he is a current, everyday smoker CXR and CT chest with mild emphysema changes. admit to regular medical floor Continue scheduled short-acting bronchodilators every 4 hours and p.r.n. breathing treatments every 2 hours Continue Methylprednisolone sodium succinate 60 mg IV push q.8 hours, day 4 of systemic steroids. Will defer to Pulmonology for steroid dosing. smoking cessation counseling given. On empiric antibiotics as above. Pulmonology following. (3) Tobacco dependence: Code(s): F17.200 - Nicotine dependence, unspecified, uncomplicated Status: Chronic Assessment and Plan: Smoking cessation counseling given. (4) History of multiple sclerosis: Code(s): G35 - Multiple sclerosis Status: Chronic Assessment and Plan: H/O MS, not in acute exacerbation. had been treated with Tecfidera twice daily until mid December of 2021 Plan CODE STATUS: FULL CODE Disposition: Inpatient, downgrade to med/surg unit with telemetry discharge destination: home to [place] when respiratory status improved. Time Spent With Patient Time with patient: 25 - 35 minutes Subjective Date/time seen: 06/19/22 09:37 Interval history: He feels he is getting better little by little. He is continuing to use coronet and incentive spirometer. His sputum is thick, yellow, but his cough is more productive. He reports trying to take his oxygen off for 20 minutes every so often to see how he feels. Review of Systems Review of Systems: All systems reviewed & are unremarkable except as noted in HPI and below Exam Narrative: General: No acute distress. Sitting up in bed. O2 2L per NC. Mental Status/Psych: Awake, alert and oriented to person, place, and time. clear speech. Cooperative. Neutral mood. Skin: warm, dry and intact without rashes or lesions. Fair turgor.?Normal for ethnicity. HEENT: Normocephalic. Sclera is non-icteric. Pupils equal and round. Oral mucosa moist. Neck: No JVD. Heart: S1 and S2 regular rate and rhythm. No murmurs, gallops or rubs auscultated. NSR on telemetry without ectopy. Chest: Respirations regular. Speaking in brief sentences. Lung sounds
--- NOTE | 2022-06-19 09:51 | PM.PNPUL ---
Progress Note: A&P Assessment and Plan (1) Acute respiratory failure with hypoxia: Code(s): J96.01 - Acute respiratory failure with hypoxia Status: Acute Assessment and Plan: This 56-year-old man with a history of smoking for many years, history of multiple sclerosis has been treated for acute respiratory failure with hypoxemia and essentially negative chest imaging studies and evidence of severe bronchospasm on physical exam. Tests for influenza COVID RSV all negative. Has been on antibiotics and IV steroids and nebulized short-acting bronchodilators every 4 hours. On physical exam today he still has wheezing although he looks somewhat more comfortable compared to couple days ago. Most likely diagnosis is viral illness with severe bronchitis /bronchospasm in a smoker patient who has evidence of mild emphysema on chest x-ray. Plan: very slow recovery despite intensive treatment with IV steroids antibiotics and short-acting bronchodilators. Will repeat chest x-ray and also repeat influenza and RSV PCR. I have increased Solu-Medrol to 80 mg q.8 hours. Continue with DVT prophylaxis. Out of bed to chair. (2) COPD with acute exacerbation: Code(s): J44.1 - Chronic obstructive pulmonary disease with (acute) exacerbation Status: Acute (3) Tobacco dependence: Code(s): F17.200 - Nicotine dependence, unspecified, uncomplicated Status: Chronic (4) History of multiple sclerosis: Code(s): G35 - Multiple sclerosis Status: Chronic Subjective Date/time seen: 06/19/22 09:51 Patient continues to have wheezing although shortness of breath has improved since admission to the hospital. He has been on nebulized short-acting bronchodilators every 4 hours. Was able to get a shower and ambulate in room yesterday. He has no fever or any other respiratory symptoms. Review of Systems Review of Systems: All systems reviewed & are unremarkable except as noted in HPI and below Exam Narrative: GENERAL APPEARANCE: Well developed, well nourished, alert and cooperative, and appears to be in mild respiratory distress while on supplemental oxygen. SKIN: Inspection of the skin reveals no rashes, ulcerations or petechiae. HEENT: Sclerae anicteric and conjunctivae pink and moist. Extraocular movements were intact and pupils were equal, round, and reactive to light. The oral mucosa, hard and soft palate, tongue and posterior pharynx were normal. NECK: Supple. There was no thyroid enlargement, and no tenderness, or masses were felt. CHEST: Normal AP diameter and normal contour without any kyphoscoliosis. LUNGS: Auscultation of the lungs revealed diffuse expiratory wheezing bilaterally, Better air entry compared to couple days ago. CARDIAC: There was a regular rate and rhythm without any murmurs, gallops, rubs. ABDOMEN: Soft and nontender with normal bowel sounds. There was no organomegaly. LYMPH NODES: No lymphadenopathy was appreciated in the neck. EXTREMITIES: No cyanosis, clubbing or edema. NEUROLOGIC: Alert and oriented x 3. Normal affect. Objective Data Vital Signs Vital Signs: Vital Signs - 24 hr 06/18/22 10:00 06/18/22 10:00 06/18/22 12:00 Temperature 36.3 C L Pulse Rate 99 99 75 Respiratory Rate 24 H 22 H Blood Pressure 145/82 H Pulse Oximetry 92 92 Oxygen Delivery Nasal Cannula Oxygen Flow Rate 2 06/18/22 13:15 06/18/22 13:25 06/18/22 16:00 Temperature 36.2 C L Pulse Rate 87 84 86 Respiratory Rate 28 H 24 H 18 Blood Pressure 154/79 H Pulse Oximetry 96 Oxygen Delivery Oxygen Flow Rate 06/18/22 17:15 06/18/22 12:00 06/18/22 16:00 Temperature Pulse Rate 97 Respiratory Rate 24 H Blood Pressure Pulse Oximetry 97 96 Oxygen Delivery Nasal Cannula Nasal Cannula Oxygen Flow Rate 2 2 06/18/22 10:00 06/18/22 12:00 06/18/22 14:00 Temperature Pulse Rate 85 94 92 Respiratory Rate Blood Pressure Pulse Oximetry Oxygen D
[2022-06-19] MEDS: cefTRIAXone 2 GM in SODIUM CHLORIDE 0.9% IV 100 ML 200 ML IVPB (10:57)
[2022-06-19] MEDS: methylPREDNISolone SOD SUCC 125 MG VIAL 80 MG IV PUSH ×2 (14:25→22:30)
[2022-06-19 15:30] LABS: Influenza A QL RT-PCR Negative (Negative); Influenza B QL RT-PCR Negative (Negative)
[2022-06-19 15:55] LABS: RSV RNA, RT-PCR Negative (Negative); SARS-CoV-2 RNA PCR Negative
[2022-06-19 17:22] LABS: Hematocrit 42.5 % (42.0-52.0); Hemoglobin 14.2 g/dL (14.0-18.0); Mean Corpuscular HGB Conc 33.4 g/dl (32-36); Mean Corpuscular Hemoglobin 31.3 pg (26-34); Mean Corpuscular Volume 93.8 fl (80-100); Mean Platelet Volume 10.9 fl (7.4-10.4); Platelet Count Result 239 k/mm3 (150-375); Red Blood Count 4.53 M/mm3 (4.6-6.20); Red Cell Distribution Width 13.7 % (11.5-14.5); White Blood Count 20.2 K/mm3 (4.5-10.0)
[2022-06-19 17:43] LABS: Lymphocytes Absolute Manual 1.21 K/mm3 (1.1-4.5); Monocytes Absolute Manual 1.01 K/mm3 (0.1-0.90); Monocytes Percent Manual 5 % (3-9); Neutrophils Percent Manual 89 % (46-73); Platelet Estimate Adequate (Adequate); Schistocytes None Seen (NORMAL); Total Cells Counted 100
[2022-06-19] MEDS: MELATONIN 5 MG TABLET PO (22:30)
[2022-06-19] MEDS: SENNA/DOCUSATE SODIUM TABLET 1 TAB PO (22:30)
[2022-06-20] VITALS (20 sets, daily range): BP systolic 135–154; BP diastolic 74–84; PULSE 58–97; RESP 16–22; TEMP 36.3–36.5; O2SAT 96–99
[2022-06-20 05:26] LABS: Potassium 4.4 mmol/L (3.4-5.0)
[2022-06-20 05:31] LABS: Anion Gap 5 mmol/L (8-16); Blood Urea Nitrogen 25 mg/dL (9-20); Calcium 8.2 mg/dL (8.4-10.2); Carbon Dioxide 28 mmol/L (22-30); Chloride 100 mmol/L (98-107); Estimated CRCL calculation 111 ml/min; Estimated Glomerular Filt Rate > 60; Glucose 137 mg/dL (65-110); Sodium 133 mmol/L (137-145)
[2022-06-20] MEDS: methylPREDNISolone SOD SUCC 125 MG VIAL 80 MG IV PUSH ×3 (06:37→21:16)
--- NOTE | 2022-06-20 07:37 | PM.IMPN ---
Progress Note: A&P Assessment and Plan (1) Acute respiratory failure with hypoxia: Code(s): J96.01 - Acute respiratory failure with hypoxia Status: Acute Assessment and Plan: Presented to the ED with c/o SOB and cough. He reports recent sick contacts. He required 2-4 L supplemental O2 and was transferred to IMU for worsening dyspnea. Presumed secondary to acute viral infection/bronchitis, severe bronchospasm and presumed underlying COPD with smoking history and mild emphysema noted on CXR. CT chest abdomen and pelvis no acute findings. CTA negative for acute PE. d-dimer 0.28 Chest x-ray showed no acute pulmonary disease. BNP 283, troponin negative, EKG sinus tach with possible LAE and incomplete RBBB Echocardiogram with normal LV systolic function, hyperdynamic EF 70%, ungraded diastolic dysfunction. Procalcitonin 0.1 Troponin negative Sputum culture ordered but unable to be obtained to date due to lack of sputum. COVID19, RSV, Influenza A/B negative. Strep PCR negative. 06/19/22 Repeat influenza A/B, RSV and COVID19 negative. 06/16/22 ABG critical values: PO2 46.3, O2 sat 81.3, oxyhemoglobin 81.4 ---patient on 4 L of O2 Continue empiric antibiotics- currently IV Rocephin, started 06/16, and IV azithromycin, started 06/17. He has been afebrile since admission. Improving leukocytosis. antibiotic day 4 azithromycin and day 5 Rocephin. IV vancomycin stopped 06/17. MRSA nasal swab negative suggesting MRSA pneumonia unlikely. Pulmonology consulted and appreciate recommendations. Supportive care. Wean O2 to keep sats>92%. (2) COPD with acute exacerbation: Code(s): J44.1 - Chronic obstructive pulmonary disease with (acute) exacerbation Status: Acute Assessment and Plan: Presumed underlying COPD. No PFTs available and he does not endorse prior history, however, he is a current, everyday smoker CXR and CT chest with mild emphysema changes. admit to regular medical floor Continue scheduled short-acting bronchodilators every 4 hours and p.r.n. breathing treatments every 2 hours Continue Methylprednisolone sodium succinate 80 mg IV push q.8 hours, day 5 of systemic steroids. Will defer to Pulmonology for steroid dosing. smoking cessation counseling given. On empiric antibiotics as above. Pulmonology following. (3) Tobacco dependence: Code(s): F17.200 - Nicotine dependence, unspecified, uncomplicated Status: Chronic Assessment and Plan: Smoking cessation counseling given. (4) History of multiple sclerosis: Code(s): G35 - Multiple sclerosis Status: Chronic Assessment and Plan: H/O MS, not in acute exacerbation. had been treated with Tecfidera twice daily until mid December of 2021 Plan CODE STATUS: FULL CODE Disposition: Inpatient, med/surg unit with telemetry discharge destination: home to [place] when respiratory status improved. Time Spent With Patient Time with patient: 15 - 25 minutes Subjective Date/time seen: 06/20/22 07:37 Interval history: He continues to feel a little better each day. He is still short of breath with exertion and requiring oxygen per nasal cannula. No fever, chills, rigors, diaphoresis, chest pain, palpitations, N/V/D or urinary changes. He is starting to move more, he states. Review of Systems Review of Systems: All systems reviewed & are unremarkable except as noted in HPI and below Exam Narrative: General: No acute distress. Dangling. O2 2L per NC. Mental Status/Psych: Awake, alert and oriented to person, place, and time. clear speech. Cooperative. Neutral mood. Skin: warm, dry and intact without rashes or lesions. Fair turgor.?Normal for ethnicity. HEENT: Normocephalic. Sclera is non-icteric. Pupils equal and round. Oral mucosa moist. Neck: No JVD. Heart: S1 and S2 regular rate and rhythm. No murmurs, gallops or rubs auscultated. NSR on telemetry without ectopy. Chest: Respirations reg
[2022-06-20 07:39] LABS: Basophils Percent Auto 0.2 % (0.2-1.2); Hemoglobin 13.7 g/dL (14.0-18.0); Immature Granulocyte Absolute 0.42 K/mm3 (0.00-0.031); Immature Granulocyte Percent A 2.3 % (0-0.5); Mean Corpuscular HGB Conc 32.6 g/dl (32-36); Mean Corpuscular Hemoglobin 31.1 pg (26-34); Mean Corpuscular Volume 95.5 fl (80-100); Mean Platelet Volume 11.6 fl (7.4-10.4); Monocytes Absolute Auto 1.1 K/mm3 (0.1-0.6); Monocytes Percent Auto 6.1 % (2.6-8.5); Neutrophils Absolute Auto 14.6 K/mm3 (1.3-6.7); Neutrophils Percent Auto 80.4 % (45.5-73.1); Platelet Count Result 242 k/mm3 (150-375); Red Cell Distribution Width 13.6 % (11.5-14.5); White Blood Count 18.2 K/mm3 (4.5-10.0)
[2022-06-20] MEDS: ENOXAPARIN 40 MG/0.4 ML SYRINGE SUB-Q (09:21)
[2022-06-20] MEDS: guaiFENesin 12 HR 600 MG TABCR PO ×2 (09:21→20:13)
[2022-06-20] MEDS: NICOTINE (*PBKC) 21 MG PATCH 1 PATCH TRANSDERM (09:21)
[2022-06-20] MEDS: ACETAMINOPHEN 325 MG TABLET 650 MG PO (09:33)
[2022-06-20] MEDS: cefTRIAXone 2 GM in SODIUM CHLORIDE 0.9% IV 100 ML 200 ML IVPB (09:34)
--- NOTE | 2022-06-20 10:27 | PM.PNPUL ---
Progress Note: A&P Assessment and Plan (1) Acute respiratory failure with hypoxia: Code(s): J96.01 - Acute respiratory failure with hypoxia Status: Acute Assessment and Plan: This 56-year-old man with a history of smoking for many years, history of multiple sclerosis has been treated for acute respiratory failure with hypoxemia and essentially negative chest imaging studies and evidence of severe bronchospasm on physical exam. Tests for influenza COVID RSV all negative. Has been on antibiotics and IV steroids and nebulized short-acting bronchodilators every 4 hours. On physical exam today he still has wheezing although he looks somewhat more comfortable compared to couple days ago. Most likely diagnosis is viral illness with severe bronchitis /bronchospasm in a smoker patient who has evidence of mild emphysema on chest x-ray. on repeat testing, influenza RSV all negative. Plan: improvement noted over last 24 hours but overall very slow recovery despite intensive treatment with IV steroids antibiotics and short-acting bronchodilators. Continue with current regimen of IV steroids for today. Continue with DVT prophylaxis. Out of bed to chair. (2) COPD with acute exacerbation: Code(s): J44.1 - Chronic obstructive pulmonary disease with (acute) exacerbation Status: Acute (3) Tobacco dependence: Code(s): F17.200 - Nicotine dependence, unspecified, uncomplicated Status: Chronic (4) History of multiple sclerosis: Code(s): G35 - Multiple sclerosis Status: Chronic Subjective Date/time seen: 06/20/22 10:27 patient stated he is feeling better. Less shortness of breath and less wheezing. Started to ambulate in room, using BR. Review of Systems Review of Systems: All systems reviewed & are unremarkable except as noted in HPI and below Exam Narrative: GENERAL APPEARANCE: Well developed, well nourished, alert and cooperative, and appears to be in mild respiratory distress while on supplemental oxygen. SKIN: Inspection of the skin reveals no rashes, ulcerations or petechiae. HEENT: Sclerae anicteric and conjunctivae pink and moist. Extraocular movements were intact and pupils were equal, round, and reactive to light. The oral mucosa, hard and soft palate, tongue and posterior pharynx were normal. NECK: Supple. There was no thyroid enlargement, and no tenderness, or masses were felt. CHEST: Normal AP diameter and normal contour without any kyphoscoliosis. LUNGS: Auscultation of the lungs revealed diffuse expiratory wheezing bilaterally, less than yesterday CARDIAC: There was a regular rate and rhythm without any murmurs, gallops, rubs. ABDOMEN: Soft and nontender with normal bowel sounds. There was no organomegaly. LYMPH NODES: No lymphadenopathy was appreciated in the neck. EXTREMITIES: No cyanosis, clubbing or edema. NEUROLOGIC: Alert and oriented x 3. Normal affect. Objective Data Vital Signs Vital Signs: Vital Signs - 24 hr 06/19/22 12:00 06/19/22 12:47 06/19/22 12:57 Temperature 36.0 C L Pulse Rate 70 82 85 Respiratory Rate 22 H 20 20 Blood Pressure 160/87 H Pulse Oximetry 98 Oxygen Delivery Oxygen Flow Rate 06/19/22 12:00 06/19/22 14:00 06/19/22 16:00 Temperature Pulse Rate 101 H 72 64 Respiratory Rate Blood Pressure Pulse Oximetry Oxygen Delivery Oxygen Flow Rate 06/19/22 16:31 06/19/22 16:41 06/19/22 16:00 Temperature 36.6 C Pulse Rate 85 70 65 Respiratory Rate 18 20 24 H Blood Pressure 145/90 H Pulse Oximetry 100 Oxygen Delivery Oxygen Flow Rate 06/19/22 18:00 06/19/22 20:00 06/19/22 21:10 Temperature 36.5 C Pulse Rate 80 83 70 Respiratory Rate 20 18 Blood Pressure 125/70 Pulse Oximetry 97 Oxygen Delivery Oxygen Flow Rate 06/19/22 21:35 06/19/22 22:55 06/20/22 00:18 Temperature 36.4 C L Pulse Rate 81 66 86 Respiratory Rate 18 18 18 Blood Pressure 155/72 H P
[2022-06-20] MEDS: MELATONIN 5 MG TABLET PO (20:13)
[2022-06-21] VITALS (15 sets, daily range): BP systolic 122–152; BP diastolic 67–89; PULSE 58–87; RESP 16–20; TEMP 36.1–36.6; O2SAT 94–98
[2022-06-21] MEDS: methylPREDNISolone SOD SUCC 125 MG VIAL 80 MG IV PUSH (05:15)
[2022-06-21 08:22] LABS: Basophils Absolute Auto 0.1 K/mm3 (0.0-0.1); Basophils Percent Auto 0.6 % (0.2-1.2); Hematocrit 44.1 % (42.0-52.0); Hemoglobin 14.2 g/dL (14.0-18.0); Immature Granulocyte Absolute 0.53 K/mm3 (0.00-0.031); Immature Platelet Fraction Pct 14.8 % (0.9-11.2); Lymphocytes Absolute Auto 1.88 K/mm3 (0.9-3.2); Lymphocytes Percent Auto 10.6 % (18.3-44.2); Mean Corpuscular HGB Conc 32.2 g/dl (32-36); Mean Corpuscular Hemoglobin 31.3 pg (26-34); Mean Corpuscular Volume 97.4 fl (80-100); Mean Platelet Volume 11.9 fl (7.4-10.4); Monocytes Absolute Auto 1.1 K/mm3 (0.1-0.6); Monocytes Percent Auto 5.9 % (2.6-8.5); Neutrophils Absolute Auto 14.3 K/mm3 (1.3-6.7); Neutrophils Percent Auto 79.9 % (45.5-73.1); Platelet Count Result 144 k/mm3 (150-375); Red Blood Count 4.53 M/mm3 (4.6-6.20); Red Cell Distribution Width 13.4 % (11.5-14.5); White Blood Count 17.8 K/mm3 (4.5-10.0)
[2022-06-21] MEDS: ACETAMINOPHEN 325 MG TABLET 650 MG PO ×3 (08:33→17:13)
[2022-06-21] MEDS: cefTRIAXone 2 GM in SODIUM CHLORIDE 0.9% IV 100 ML 200 ML IVPB (08:33)
[2022-06-21] MEDS: guaiFENesin 12 HR 600 MG TABCR PO ×2 (08:34→21:02)
[2022-06-21] MEDS: NICOTINE (*PBKC) 21 MG PATCH 1 PATCH TRANSDERM (08:35)
--- NOTE | 2022-06-21 13:02 | PM.PNPUL ---
Progress Note: A&P Assessment and Plan (1) Acute respiratory failure with hypoxia: Code(s): J96.01 - Acute respiratory failure with hypoxia Status: Acute Assessment and Plan: This 56-year-old man with a history of smoking for many years, history of multiple sclerosis has been treated for acute respiratory failure with hypoxemia and essentially negative chest imaging studies and evidence of severe bronchospasm on physical exam. Tests for influenza COVID RSV all negative. Has been on antibiotics and IV steroids and nebulized short-acting bronchodilators every 4 hours. On physical exam today he still has wheezing although he looks somewhat more comfortable compared to couple days ago. he is currently on room air. Wheezing has decreased compared to few days ago. Plan: improvement noted over last 24 hours but overall very slow recovery. Have decreased IV steroids. continue with IV antibiotics and short-acting bronchodilators. Anticipate DC home within the next couple of days. Continue with DVT prophylaxis. Out of bed to chair. (2) COPD with acute exacerbation: Code(s): J44.1 - Chronic obstructive pulmonary disease with (acute) exacerbation Status: Acute (3) Tobacco dependence: Code(s): F17.200 - Nicotine dependence, unspecified, uncomplicated Status: Chronic (4) History of multiple sclerosis: Code(s): G35 - Multiple sclerosis Status: Chronic Subjective Date/time seen: 06/21/22 13:02 patient without any new respiratory symptoms. Currently on room air. Still having shortness of breath with ambulation. No fever or chills. Review of Systems Review of Systems: All systems reviewed & are unremarkable except as noted in HPI and below Exam Narrative: GENERAL APPEARANCE: Well developed, well nourished, alert and cooperative, and appears to be in mild respiratory distress while on supplemental oxygen. SKIN: Inspection of the skin reveals no rashes, ulcerations or petechiae. HEENT: Sclerae anicteric and conjunctivae pink and moist. Extraocular movements were intact and pupils were equal, round, and reactive to light. The oral mucosa, hard and soft palate, tongue and posterior pharynx were normal. NECK: Supple. There was no thyroid enlargement, and no tenderness, or masses were felt. CHEST: Normal AP diameter and normal contour without any kyphoscoliosis. LUNGS: Auscultation of the lungs revealed diffuse expiratory wheezing bilaterally, less than yesterday CARDIAC: There was a regular rate and rhythm without any murmurs, gallops, rubs. ABDOMEN: Soft and nontender with normal bowel sounds. There was no organomegaly. LYMPH NODES: No lymphadenopathy was appreciated in the neck. EXTREMITIES: No cyanosis, clubbing or edema. NEUROLOGIC: Alert and oriented x 3. Normal affect. Objective Data Vital Signs Vital Signs: Vital Signs - 24 hr 06/20/22 14:00 06/20/22 17:51 06/20/22 17:59 Temperature Pulse Rate 82 74 79 Respiratory Rate 18 18 Blood Pressure Pulse Oximetry Oxygen Delivery 06/20/22 16:00 06/20/22 20:00 06/20/22 20:24 Temperature Pulse Rate 69 70 70 Respiratory Rate 22 H Blood Pressure Pulse Oximetry Oxygen Delivery 06/20/22 20:35 06/20/22 20:30 06/21/22 00:00 Temperature 36.3 C L Pulse Rate 78 75 79 Respiratory Rate 22 H 20 Blood Pressure 154/77 H Pulse Oximetry 98 Oxygen Delivery 06/21/22 01:35 06/21/22 00:40 06/21/22 04:00 Temperature 36.3 C L Pulse Rate 70 74 64 Respiratory Rate 16 20 Blood Pressure 138/85 Pulse Oximetry 98 Oxygen Delivery 06/21/22 06:00 06/21/22 07:50 06/21/22 07:50 Temperature 36.6 C Pulse Rate 63 62 Respiratory Rate 18 16 Blood Pressure 122/67 Pulse Oximetry 95 94 Oxygen Delivery Room Air 06/21/22 08:01 06/21/22 10:35 06/21/22 11:30 Temperature 36.4 C L Pulse Rate 58 L 87 80 Respiratory Rate 16 18 18 Blood Pressure 152/68 H Puls
--- NOTE | 2022-06-21 13:27 | P.PNIM_ITS ---
Progress Note: A&P Assessment and Plan (1) Acute respiratory failure with hypoxia: Code(s): J96.01 - Acute respiratory failure with hypoxia Status: Acute Assessment and Plan: Presented to the ED with c/o SOB and cough. He reports recent sick contacts. He required 2-4 L supplemental O2 and was transferred to IMU for worsening dyspnea. Presumed secondary to acute viral infection/bronchitis, severe bronchospasm and presumed underlying COPD with smoking history and mild emphysema noted on CXR. * CT chest abdomen and pelvis no acute findings. * CTA negative for acute PE. d-dimer 0.28 * Chest x-ray showed no acute pulmonary disease. * BNP 283, troponin negative, EKG sinus tach with possible LAE and incomplete RBBB * Echocardiogram with normal LV systolic function, hyperdynamic EF 70%, ungraded diastolic dysfunction. * Procalcitonin 0.1. Sputum culture ordered but unable to be obtained to date due to lack of sputum. * COVID19, RSV, Influenza A/B negative. Strep PCR negative. 06/19/22 Repeat influenza A/B, RSV and COVID19 negative. * 06/16/22 ABG critical values: PO2 46.3, O2 sat 81.3, oxyhemoglobin 81.4 ---patient on 4 L of O2 * Continue empiric antibiotics- currently IV Rocephin, started 06/16, and IV azithromycin, started 06/17. He has been afebrile since admission. Improving leukocytosis. antibiotic day 5 azithromycin and day 6 Rocephin. 06/21 azithromycin. Discontinued after 5 days IV treatment. * IV vancomycin stopped 06/17. MRSA nasal swab negative suggesting MRSA pneumonia unlikely. * Pulmonology following and appreciate recommendations. * Supportive care. * Wean O2 to keep sats>92%. (2) COPD with acute exacerbation: Code(s): J44.1 - Chronic obstructive pulmonary disease with (acute) exacerbation Status: Acute Assessment and Plan: Presumed underlying COPD. No PFTs available and he does not endorse prior history, however, he is a current, everyday smoker * CXR and CT chest with mild emphysema changes. admit to regular medical floor * Continue scheduled short-acting bronchodilators every 4 hours and p.r.n. breathing treatments every 2 hours * Continue Methylprednisolone sodium succinate 40 mg IV push q.8 hours, day 6 of systemic steroids. Will defer to Pulmonology for steroid dosing. IV steroids being weaned by pulmonology. * smoking cessation counseling given. * On empiric antibiotics as above. * Pulmonology following. (3) Tobacco dependence: Code(s): F17.200 - Nicotine dependence, unspecified, uncomplicated Status: Chronic Assessment and Plan: Smoking cessation counseling given. (4) History of multiple sclerosis: Code(s): G35 - Multiple sclerosis Status: Chronic Assessment and Plan: H/O MS, not in acute exacerbation. had been treated with Tecfidera twice daily until mid December of 2021 (5) Cephalic vein thrombosis: Code(s): I82.619 - Acute embolism and thrombosis of superficial veins of unspecified upper extremity Status: Acute Assessment and Plan: Patient complained of tenderness, redness, swelling and heat to left forearm as well as right upper extremity/axillary region tenderness to palpation without skin changes. Left forearm had previous IV that was removed today. * Venous Doppler bilateral upper extremities shows bilateral cephalic vein thrombosis. * Will continue conservative care. Elevate affected extremities, ibuprofen 600 mg p.o. x1, trial warm compresses or ice packs as patient tolerates. * Will defer anticoagulation as this is a superficial venous thrombosis and generally not recommended unless
--- NOTE | 2022-06-21 13:27 | PM.IMPN ---
Progress Note: A&P Assessment and Plan (1) Acute respiratory failure with hypoxia: Code(s): J96.01 - Acute respiratory failure with hypoxia Status: Acute Assessment and Plan: Presented to the ED with c/o SOB and cough. He reports recent sick contacts. He required 2-4 L supplemental O2 and was transferred to IMU for worsening dyspnea. Presumed secondary to acute viral infection/bronchitis, severe bronchospasm and presumed underlying COPD with smoking history and mild emphysema noted on CXR. CT chest abdomen and pelvis no acute findings. CTA negative for acute PE. d-dimer 0.28 Chest x-ray showed no acute pulmonary disease. BNP 283, troponin negative, EKG sinus tach with possible LAE and incomplete RBBB Echocardiogram with normal LV systolic function, hyperdynamic EF 70%, ungraded diastolic dysfunction. Procalcitonin 0.1. Sputum culture ordered but unable to be obtained to date due to lack of sputum. COVID19, RSV, Influenza A/B negative. Strep PCR negative. 06/19/22 Repeat influenza A/B, RSV and COVID19 negative. 06/16/22 ABG critical values: PO2 46.3, O2 sat 81.3, oxyhemoglobin 81.4 ---patient on 4 L of O2 Continue empiric antibiotics- currently IV Rocephin, started 06/16, and IV azithromycin, started 06/17. He has been afebrile since admission. Improving leukocytosis. antibiotic day 5 azithromycin and day 6 Rocephin. 06/21 azithromycin. Discontinued after 5 days IV treatment. IV vancomycin stopped 06/17. MRSA nasal swab negative suggesting MRSA pneumonia unlikely. Pulmonology following and appreciate recommendations. Supportive care. Wean O2 to keep sats>92%. (2) COPD with acute exacerbation: Code(s): J44.1 - Chronic obstructive pulmonary disease with (acute) exacerbation Status: Acute Assessment and Plan: Presumed underlying COPD. No PFTs available and he does not endorse prior history, however, he is a current, everyday smoker CXR and CT chest with mild emphysema changes. admit to regular medical floor Continue scheduled short-acting bronchodilators every 4 hours and p.r.n. breathing treatments every 2 hours Continue Methylprednisolone sodium succinate 40 mg IV push q.8 hours, day 6 of systemic steroids. Will defer to Pulmonology for steroid dosing. IV steroids being weaned by pulmonology. smoking cessation counseling given. On empiric antibiotics as above. Pulmonology following. (3) Tobacco dependence: Code(s): F17.200 - Nicotine dependence, unspecified, uncomplicated Status: Chronic Assessment and Plan: Smoking cessation counseling given. (4) History of multiple sclerosis: Code(s): G35 - Multiple sclerosis Status: Chronic Assessment and Plan: H/O MS, not in acute exacerbation. had been treated with Tecfidera twice daily until mid December of 2021 (5) Cephalic vein thrombosis: Code(s): I82.619 - Acute embolism and thrombosis of superficial veins of unspecified upper extremity Status: Acute Assessment and Plan: Patient complained of tenderness, redness, swelling and heat to left forearm as well as right upper extremity/axillary region tenderness to palpation without skin changes. Left forearm had previous IV that was removed today. Venous Doppler bilateral upper extremities shows bilateral cephalic vein thrombosis. Will continue conservative care. Elevate affected extremities, ibuprofen 600 mg p.o. x1, trial warm compresses or ice packs as patient tolerates. Will defer anticoagulation as this is a superficial venous thrombosis and generally not recommended unless to lower extremities. patient is on DVT prophylaxis Lovenox subQ Plan CODE STATUS: FULL CODE Disposition: Inpatient, med/surg unit with telemetry discharge destination: home to [place] when respiratory status improved. Time Spent With Patient Time with patient: 15 - 25 minutes Subjective Date/time seen: 06/21/22 13:27 Patient reports
[2022-06-21] MEDS: methylPREDNISolone SOD SUCC 40 MG VIAL IV PUSH ×2 (15:56→21:02)
[2022-06-21] MEDS: IBUPROFEN 600 MG TABLET PO (17:14)
[2022-06-21] MEDS: MENTHOL 10% / METHYL SALICYLATE 15% 57 GM TUBE 1 APPLIC TOPICAL (18:56)
[2022-06-21] MEDS: MELATONIN 5 MG TABLET 10 MG PO (21:00)
--- NOTE | 2022-06-21 23:03 | PCRCNOTE ---
Window of time for administration has passed. See next scheduled administration.
[2022-06-22] VITALS (15 sets, daily range): BP systolic 120–152; BP diastolic 63–83; PULSE 61–104; RESP 16–21; TEMP 36.3–36.6; O2SAT 94–100
--- NOTE | 2022-06-22 05:02 | PCRCNOTE ---
patient did not want to be awakened for neb treatment per RN
[2022-06-22] MEDS: methylPREDNISolone SOD SUCC 40 MG VIAL IV PUSH (05:14)
[2022-06-22 06:43] LABS: Basophils Absolute Auto 0.1 K/mm3 (0.0-0.1); Basophils Percent Auto 0.5 % (0.2-1.2); Hematocrit 40.8 % (42.0-52.0); Hemoglobin 13.6 g/dL (14.0-18.0); Immature Granulocyte Absolute 0.94 K/mm3 (0.00-0.031); Immature Granulocyte Percent A 4.9 % (0-0.5); Immature Platelet Fraction Pct 9.2 % (0.9-11.2); Lymphocytes Absolute Auto 1.61 K/mm3 (0.9-3.2); Lymphocytes Percent Auto 8.5 % (18.3-44.2); Mean Corpuscular HGB Conc 33.3 g/dl (32-36); Mean Corpuscular Hemoglobin 31.7 pg (26-34); Mean Corpuscular Volume 95.1 fl (80-100); Mean Platelet Volume 12.4 fl (7.4-10.4); Monocytes Absolute Auto 1.7 K/mm3 (0.1-0.6); Neutrophils Absolute Auto 14.7 K/mm3 (1.3-6.7); Neutrophils Percent Auto 77.1 % (45.5-73.1); Platelet Count Result 226 k/mm3 (150-375); Red Blood Count 4.29 M/mm3 (4.6-6.20); Red Cell Distribution Width 13.5 % (11.5-14.5)
[2022-06-22 07:07] LABS: Anion Gap 5 mmol/L (8-16); Blood Urea Nitrogen 29 mg/dL (9-20); Calcium 7.6 mg/dL (8.4-10.2); Carbon Dioxide 26 mmol/L (22-30); Chloride 105 mmol/L (98-107); Estimated CRCL calculation 111 ml/min; Estimated Glomerular Filt Rate > 60; Glucose 196 mg/dL (65-110); Potassium 3.9 mmol/L (3.4-5.0); Sodium 136 mmol/L (137-145)
[2022-06-22] MEDS: cefTRIAXone 2 GM in SODIUM CHLORIDE 0.9% IV 100 ML 200 ML IVPB (08:30)
[2022-06-22] MEDS: NICOTINE (*PBKC) 21 MG PATCH 1 PATCH TRANSDERM (08:31)
[2022-06-22] MEDS: guaiFENesin 12 HR 600 MG TABCR PO ×2 (08:31→20:06)
[2022-06-22] MEDS: ONDANSETRON INJ 4 MG/2 ML VIAL IV PUSH (08:51)
[2022-06-22] MEDS: amLODIPine BESYLATE 5 MG TABLET PO (10:32)
--- NOTE | 2022-06-22 12:10 | PM.PNPUL ---
Progress Note: A&P Assessment and Plan (1) Acute respiratory failure with hypoxia: Code(s): J96.01 - Acute respiratory failure with hypoxia Status: Acute Assessment and Plan: 06/21/2022 ?This 56-year-old man with a history of smoking for many years, history of multiple sclerosis has been treated for acute respiratory failure with hypoxemia and essentially negative chest imaging studies and evidence of? severe bronchospasm on physical exam.? Tests for influenza COVID RSV all negative. Has been on antibiotics and IV steroids and nebulized short-acting bronchodilators every 4 hours.? On physical exam today he still has wheezing ? although he looks somewhat more comfortable compared to couple days ago. ? he is currently on room air. ? Wheezing has decreased compared to few days ago. Plan: ? improvement noted over last 24 hours but overall very slow recovery. ? ? Have decreased IV steroids.? continue with IV antibiotics and short-acting bronchodilators.? Anticipate DC home within the next couple of days. ? Continue with DVT prophylaxis.? ? Out of bed to chair. 06/22/2022 I will decrease his IV steroids from 40 mg IV q.8 hours to 20 mg IV q.6 hours. I will continue ceftriaxone (started 06/16) and he has finished 5 days of azithromycin on 06/21. (2) COPD with acute exacerbation: Code(s): J44.1 - Chronic obstructive pulmonary disease with (acute) exacerbation Status: Acute Assessment and Plan: 06/22/2022: Patient continues to improve. Patient has some end expiratory wheezes on exam. I will decrease his steroids from 40 mg IV q.8 hours to 20 mg IV q.[address] the patient on albuterol nebulizers 2.5 mg and ipratropium 0.5 mg nebulized q.4 hours while awake. I will check an overnight oximetry on room air. Subjective Date/time seen: 06/22/22 12:10 Interval history: 06/21/22? 13:02 ?patient without any new respiratory symptoms.? Currently on room air.? Still having shortness of breath with ambulation.? No fever or chills. 06/22/2022 patient continues to slowly improve. He tells me is 45% back to his baseline. His cough is improved. His wheezing have improved. White blood cell count is 19.0. His resting room air saturations are 97%. He has no wheezing on exam. Review of Systems Constitutional: Constitutional: Reports no additional constitutional complaints Eyes: Eyes: Reports no additional eye complaints ENT: Reports system reviewed and no additional complaints, except as documented Cardiovascular: Cardiovascular: Reports no additional cardiovascular complaints Respiratory: Respiratory: Reports no additional respiratory complaints Gastrointestinal: Gastrointestinal: Reports no additional gastrointestinal complaints Musculoskeletal: Musculoskeletal: Reports no additional musculoskeletal complaints Neurologic: Reports system reviewed and no additional complaints, except as documented Psychiatric: Psychiatric: Reports no additional psychiatric complaints Endocrine: Endocrine: Reports no additional endocrine complaints Hematologic/Lymphatic: Hematologic/Lymphatic: Reports no additional hematologic/lymphatic complaints Allergic/Immunologic: Allergic/Immunologic: Reports no additional allergic/immunologic complaints Exam Const: General: cooperative, healthy appearing and comfortable Orientation/consciousness: oriented to person, oriented to place and oriented to time HENMT: Head: normal to inspection Ears: hearing grossly normal bilaterally Eyes: General: appearance normal, both eyes and all related structures Neck: Neck: normal visual inspection Chest: Chest palpation & inspection: normal inspection of the chest Resp: Effort & Inspection: normal respiratory effort and able to speak in complete sentences Auscultation: no crackles, no rales, no rhonchi, wheezes (end expiratory) and lung sounds not diminished Cardio: Jugular venous distension: no JVD GI: Inspection: hailey
[2022-06-22] MEDS: IPRATROPIUM BR 0.02% INH SOLN 0.5 MG/2.5 ML VIAL INHALATION ×2 (13:23→20:08)
[2022-06-22] MEDS: ALBUTEROL SULFATE NEB 2.5 MG/3 ML INH INHALATION ×3 (13:23→23:45)
[2022-06-22] MEDS: BENZONATATE 100 MG CAPSULE PO (15:34)
--- NOTE | 2022-06-22 16:35 | P.PNIM_ITS ---
Progress Note: A&P Assessment and Plan (1) Acute respiratory failure with hypoxia: Code(s): J96.01 - Acute respiratory failure with hypoxia Status: Acute Assessment and Plan: Presented to the ED with c/o SOB and cough. He reports recent sick contacts. He required 2-4 L supplemental O2 and was transferred to IMU for worsening dyspnea. Presumed secondary to acute viral infection/bronchitis, severe bronchospasm and presumed underlying COPD with smoking history and mild emphysema noted on CXR. * CT chest abdomen and pelvis no acute findings. * CTA negative for acute PE. d-dimer 0.28 * Chest x-ray showed no acute pulmonary disease. * BNP 283, troponin negative, EKG sinus tach with possible LAE and incomplete RBBB * Echocardiogram with normal LV systolic function, hyperdynamic EF 70%, ungraded diastolic dysfunction. * Procalcitonin 0.1. Sputum culture ordered but unable to be obtained to date due to lack of sputum. * COVID19, RSV, Influenza A/B negative. Strep PCR negative. 06/19/22 Repeat influenza A/B, RSV and COVID19 negative. * 06/16/22 ABG critical values: PO2 46.3, O2 sat 81.3, oxyhemoglobin 81.4 ---patient on 4 L of O2 * Continue empiric antibiotics- currently IV Rocephin, started 06/16, and IV azithromycin, started 06/17. He has been afebrile since admission. Improving leukocytosis. antibiotic day 5 azithromycin and day 7 Rocephin. 06/21 azithromycin. Discontinued after 5 days IV treatment. * IV vancomycin stopped 06/17. MRSA nasal swab negative suggesting MRSA pneumonia unlikely. * Pulmonology following and appreciate recommendations. * Supportive care. * Wean O2 to keep sats>92%. (2) COPD with acute exacerbation: Code(s): J44.1 - Chronic obstructive pulmonary disease with (acute) exacerbation Status: Acute Assessment and Plan: Presumed underlying COPD. No PFTs available and he does not endorse prior history, however, he is a current, everyday smoker * CXR and CT chest with mild emphysema changes. admit to regular medical floor * Continue scheduled short-acting bronchodilators every 4 hours and p.r.n. breathing treatments every 2 hours * Continue Methylprednisolone 20 mg IV push q.6 hours, day 6 of systemic steroids. Will defer to Pulmonology for steroid dosing. IV steroids being weaned by pulmonology. * smoking cessation counseling given. * On empiric antibiotics as above. * Pulmonology following. (3) Tobacco dependence: Code(s): F17.200 - Nicotine dependence, unspecified, uncomplicated Status: Chronic Assessment and Plan: Smoking cessation counseling given. (4) History of multiple sclerosis: Code(s): G35 - Multiple sclerosis Status: Chronic Assessment and Plan: H/O MS, not in acute exacerbation. had been treated with Tecfidera twice daily until mid December of 2021 (5) Cephalic vein thrombosis: Code(s): I82.619 - Acute embolism and thrombosis of superficial veins of unspecified upper extremity Status: Acute Assessment and Plan: Patient complained of tenderness, redness, swelling and heat to left forearm as well as right upper extremity/axillary region tenderness to palpation without skin changes. Left forearm had previous IV that was removed today. * Venous Doppler bilateral upper extremities shows bilateral cephalic vein thrombosis. * Will continue conservative care. Elevate affected extremities, ibuprofen 600 mg p.o. x1, trial warm compresses or ice packs as patient tolerates. * Will defer anticoagulation as this is a superficial venous thrombosis and generally not recommended unless to lower extremi
--- NOTE | 2022-06-22 16:35 | PM.IMPN ---
Progress Note: A&P Assessment and Plan (1) Acute respiratory failure with hypoxia: Code(s): J96.01 - Acute respiratory failure with hypoxia Status: Acute Assessment and Plan: Presented to the ED with c/o SOB and cough. He reports recent sick contacts. He required 2-4 L supplemental O2 and was transferred to IMU for worsening dyspnea. Presumed secondary to acute viral infection/bronchitis, severe bronchospasm and presumed underlying COPD with smoking history and mild emphysema noted on CXR. CT chest abdomen and pelvis no acute findings. CTA negative for acute PE. d-dimer 0.28 Chest x-ray showed no acute pulmonary disease. BNP 283, troponin negative, EKG sinus tach with possible LAE and incomplete RBBB Echocardiogram with normal LV systolic function, hyperdynamic EF 70%, ungraded diastolic dysfunction. Procalcitonin 0.1. Sputum culture ordered but unable to be obtained to date due to lack of sputum. COVID19, RSV, Influenza A/B negative. Strep PCR negative. 06/19/22 Repeat influenza A/B, RSV and COVID19 negative. 06/16/22 ABG critical values: PO2 46.3, O2 sat 81.3, oxyhemoglobin 81.4 ---patient on 4 L of O2 Continue empiric antibiotics- currently IV Rocephin, started 06/16, and IV azithromycin, started 06/17. He has been afebrile since admission. Improving leukocytosis. antibiotic day 5 azithromycin and day 7 Rocephin. 06/21 azithromycin. Discontinued after 5 days IV treatment. IV vancomycin stopped 06/17. MRSA nasal swab negative suggesting MRSA pneumonia unlikely. Pulmonology following and appreciate recommendations. Supportive care. Wean O2 to keep sats>92%. (2) COPD with acute exacerbation: Code(s): J44.1 - Chronic obstructive pulmonary disease with (acute) exacerbation Status: Acute Assessment and Plan: Presumed underlying COPD. No PFTs available and he does not endorse prior history, however, he is a current, everyday smoker CXR and CT chest with mild emphysema changes. admit to regular medical floor Continue scheduled short-acting bronchodilators every 4 hours and p.r.n. breathing treatments every 2 hours Continue Methylprednisolone 20 mg IV push q.6 hours, day 6 of systemic steroids. Will defer to Pulmonology for steroid dosing. IV steroids being weaned by pulmonology. smoking cessation counseling given. On empiric antibiotics as above. Pulmonology following. (3) Tobacco dependence: Code(s): F17.200 - Nicotine dependence, unspecified, uncomplicated Status: Chronic Assessment and Plan: Smoking cessation counseling given. (4) History of multiple sclerosis: Code(s): G35 - Multiple sclerosis Status: Chronic Assessment and Plan: H/O MS, not in acute exacerbation. had been treated with Tecfidera twice daily until mid December of 2021 (5) Cephalic vein thrombosis: Code(s): I82.619 - Acute embolism and thrombosis of superficial veins of unspecified upper extremity Status: Acute Assessment and Plan: Patient complained of tenderness, redness, swelling and heat to left forearm as well as right upper extremity/axillary region tenderness to palpation without skin changes. Left forearm had previous IV that was removed today. Venous Doppler bilateral upper extremities shows bilateral cephalic vein thrombosis. Will continue conservative care. Elevate affected extremities, ibuprofen 600 mg p.o. x1, trial warm compresses or ice packs as patient tolerates. Will defer anticoagulation as this is a superficial venous thrombosis and generally not recommended unless to lower extremities. patient is on DVT prophylaxis Lovenox subQ Plan CODE STATUS: FULL CODE Disposition: Inpatient, med/surg unit with telemetry discharge destination: home to [place] when respiratory status improved. Time Spent With Patient Time with patient: 15 - 25 minutes Subjective Date/time seen: 06/22/22 16:35 He feels his breathing continues
[2022-06-22] MEDS: methylPREDNISolone SOD SUCC 40 MG VIAL 20 MG IV PUSH ×2 (17:21→23:02)
--- NOTE | 2022-06-22 18:28 | PC.NURSE ---
Patient complains being stuck in the hospital and states he is doing much better and would like to get home as soon as possible. States he would like to go home to finish antibiotic series and go back to work soon. Told patient I will mention the concern to the doctor in the AM.
[2022-06-22] MEDS: MELATONIN 5 MG TABLET 10 MG PO (20:05)
[2022-06-22] MEDS: LORazepam INJ (*CRX) 2 MG/ML VIAL 0.25 MG IV PUSH (23:02)
[2022-06-23] VITALS: BP 135/78; PULSE 74; RESP 20; TEMP 36.5; O2SAT 95
[2022-06-23 04:00] VITALS: BP 121/68; PULSE 72; RESP 16; TEMP 36.7; O2SAT 95
[2022-06-23] MEDS: methylPREDNISolone SOD SUCC 40 MG VIAL 20 MG IV PUSH ×2 (05:24→13:21)
[2022-06-23 06:03] LABS: Basophils Absolute Auto 0.1 K/mm3 (0.0-0.1); Basophils Percent Auto 0.6 % (0.2-1.2); Hematocrit 40.5 % (42.0-52.0); Hemoglobin 13.6 g/dL (14.0-18.0); Immature Granulocyte Absolute 1.46 K/mm3 (0.00-0.031); Immature Granulocyte Percent A 7.1 % (0-0.5); Lymphocytes Absolute Auto 2.12 K/mm3 (0.9-3.2); Lymphocytes Percent Auto 10.3 % (18.3-44.2); Mean Corpuscular HGB Conc 33.6 g/dl (32-36); Mean Corpuscular Hemoglobin 30.6 pg (26-34); Mean Corpuscular Volume 91.2 fl (80-100); Monocytes Absolute Auto 1.6 K/mm3 (0.1-0.6); Neutrophils Absolute Auto 15.3 K/mm3 (1.3-6.7); Platelet Count Result 256 k/mm3 (150-375); Red Blood Count 4.44 M/mm3 (4.6-6.20); Red Cell Distribution Width 13.3 % (11.5-14.5); White Blood Count 20.6 K/mm3 (4.5-10.0)
[2022-06-23 08:45] VITALS: PULSE 72; RESP 18
[2022-06-23] MEDS: ALBUTEROL SULFATE NEB 2.5 MG/3 ML INH INHALATION (08:59)
[2022-06-23] MEDS: IPRATROPIUM BR 0.02% INH SOLN 0.5 MG/2.5 ML VIAL INHALATION (08:59)
[2022-06-23 09:01] VITALS: PULSE 76; RESP 18
--- NOTE | 2022-06-23 09:24 | PM.PNPUL ---
Progress Note: A&P Assessment and Plan (1) Acute respiratory failure with hypoxia: Code(s): J96.01 - Acute respiratory failure with hypoxia Status: Acute Assessment and Plan: 06/21/2022 ?This 56-year-old man with a history of smoking for many years, history of multiple sclerosis has been treated for acute respiratory failure with hypoxemia and essentially negative chest imaging studies and evidence of? severe bronchospasm on physical exam.? Tests for influenza COVID RSV all negative. Has been on antibiotics and IV steroids and nebulized short-acting bronchodilators every 4 hours.? On physical exam today he still has wheezing ? although he looks somewhat more comfortable compared to couple days ago. ? he is currently on room air. ? Wheezing has decreased compared to few days ago. Plan: ? improvement noted over last 24 hours but overall very slow recovery. ? ? Have decreased IV steroids.? continue with IV antibiotics and short-acting bronchodilators.? Anticipate DC home within the next couple of days. ? Continue with DVT prophylaxis.? ? Out of bed to chair. 06/22/2022 I will decrease his IV steroids from 40 mg IV q.8 hours to 20 mg IV q.6 hours. I will continue ceftriaxone (started 06/16) and he has finished 5 days of azithromycin on 06/21. 06/23 States he is 85% back at his baseline. His dyspnea on exertion is better and he has been walking the halls. He denies fever, chills, phlegm or hemoptysis. Has no wheezing on exam today. Patient had an overnight oximetry on room air with average saturation 95%, lowest saturation 86%, time with saturation less than or equal to 88% was 1 minutes. today is day 8 of antibiotics and I will discontinue. From a pulmonary perspective patient is ready to be discharged on these Pulmonary medications: Prednisone 40 mg PO Q day X 5 days Beta agonist and muscarinic antagonist that insurance will cover (Anoro Ellipta 62.5/25 at 1 puff Q day, stiolto respimat 2.5/2.5 at 1 puff BID, bevespi aerosphere 9 mcg/4.8 at 2 puffs BID, combivent respimat at 2 puffs Q 4 HR or separate albuterol and atrovent inhalers at 2 puffs Q 4 HR) rescue albuterol 2 puffs q.4 hours p.r.n. shortness of breath or wheezing oxygen at rest and with ambulation per formal home O2 assessment which is ordered. Follow up with his physicians in [place] in 3-4 weeks. Discussed with April Beck, call with questions. (2) COPD with acute exacerbation: Code(s): J44.1 - Chronic obstructive pulmonary disease with (acute) exacerbation Status: Acute Assessment and Plan: 06/22/2022: Patient continues to improve. Patient has some end expiratory wheezes on exam. I will decrease his steroids from 40 mg IV q.8 hours to 20 mg IV q.[address] the patient on albuterol nebulizers 2.5 mg and ipratropium 0.5 mg nebulized q.4 hours while awake. I will check an overnight oximetry on room air. 06/23 Patient states he is much improved and ready for discharge today. I will discharge the patient on a prednisone 40 mg p.o. q.day x5 days, long-acting beta agonist, long-acting muscarinic antagonist and rescue albuterol. Home O2 assessment to be performed prior to discharge. Subjective Date/time seen: 06/23/22 09:24 Interval history: 06/21/22? 13:02 ?patient without any new respiratory symptoms.? Currently on room air.? Still having shortness of breath with ambulation.? No fever or chills. 06/22/2022 patient continues to slowly improve. He tells me is 45% back to his baseline. His cough is improved. His wheezing have improved. White blood cell count is 19.0. His resting room air saturations are 97%. He has no wheezing on exam. 06/23 States he is 85% back at his baseline. His dyspnea on exertion is better and he has been walking the halls. He denies fever, chills, phlegm or hemoptysis. Has no wheezing on exam today. Patient had an overnight oximetry on room air with average saturation 95%, lowest
[2022-06-23] MEDS: NICOTINE (*PBKC) 21 MG PATCH 1 PATCH TRANSDERM (09:46)
[2022-06-23] MEDS: amLODIPine BESYLATE 5 MG TABLET PO (09:47)
[2022-06-23] MEDS: guaiFENesin 12 HR 600 MG TABCR PO (09:47)
[2022-06-23] MEDS: BENZONATATE 100 MG CAPSULE PO (09:57)
[2022-06-23] MEDS: ALBUTEROL SULFATE (*SP) AEROSOL 1 PUFF 2 PUFF INHALATION (10:00)
[2022-06-23 11:20] VITALS: PULSE 76; O2SAT 97
[2022-06-23 11:25] VITALS: PULSE 77; O2SAT 97
--- NOTE | 2022-06-23 11:41 | HOMEO2EVAL ---
Evaluation was performed at [facility] Home Oxygen Evaluation RC: Home Oxygen (O2) Evaluation Start: 06/23/22 08:22 Freq: ONCE Status: Active Protocol: RPE Activity Type Activity Date Activity User E-sign Co-sign Detail Recorded Client Recorded Date Recorded By Document 06/23/22 11:20 KRM [id number] 06/23/22 11:40 KRM Document 06/23/22 11:25 KRM [id number] 06/23/22 11:40 KRM 06/23/22 06/23/22 11:20 11:25 Home O2 Evaluation [Oxygen] -Test Phase Resting Exercise -Oxygen Delivery Room Air Room Air [Pulse Oximetry] -Pulse Oximetry (90-100 %) 97 97 [Pulse Rate] -Pulse Rate (60-100 beats/min) 76 77 [Evaluation] -Activity Tolerance Good [Exercise] -Ambulation Distance (feet) 50 -Ambulation Distance (meters) 15.23 [Charges] -Treatment Charges O2 Evaluation - Inpatient
--- NOTE | 2022-06-23 11:55 | P.DS_ITS ---
DS: Admitting Diagnosis Discharge Date 06/23/22 1155 Admitting Diagnosis COPD with acute exacerbation, presumed Tobacco dependence Acute respiratory failure with hypoxia DS: Discharge Diagnosis Discharge Diagnosis (1) Acute respiratory failure with hypoxia: Code(s): J96.01 - Acute respiratory failure with hypoxia Status: Acute Assessment and Plan: Presented to the ED with c/o SOB and cough. He reports recent sick contacts. He required 2-4 L supplemental O2 and was transferred to IMU for worsening dyspnea. Presumed secondary to acute viral infection/bronchitis, severe bronchospasm and presumed underlying COPD with smoking history and mild emphysema noted on CXR. * CT chest abdomen and pelvis no acute findings. * CTA negative for acute PE. d-dimer 0.28 * Chest x-ray showed no acute pulmonary disease. * BNP 283, troponin negative, EKG sinus tach with possible LAE and incomplete RBBB * Echocardiogram with normal LV systolic function, hyperdynamic EF 70%, ungraded diastolic dysfunction. * Procalcitonin 0.1. Sputum culture ordered but unable to be obtained to date due to lack of sputum. * COVID19, RSV, Influenza A/B negative. Strep PCR negative. 06/19/22 Repeat influenza A/B, RSV and COVID19 negative. * 06/16/22 ABG critical values: PO2 46.3, O2 sat 81.3, oxyhemoglobin 81.4 ---patient on 4 L of O2 * Continue empiric antibiotics- currently IV Rocephin, started 06/16, and IV azithromycin, started 06/17. He has been afebrile since admission. Improving leukocytosis. antibiotic day 5 azithromycin and day 7 Rocephin. 06/21 azithromycin. Discontinued after 5 days IV treatment. * IV vancomycin stopped 06/17. MRSA nasal swab negative suggesting MRSA pneumonia unlikely. * Pulmonology following and appreciate recommendations. * Supportive care. * Wean O2 to keep sats>92%. (2) COPD with acute exacerbation: Code(s): J44.1 - Chronic obstructive pulmonary disease with (acute) exacerbation Status: Acute Assessment and Plan: Presumed underlying COPD. No PFTs available and he does not endorse prior history, however, he is a current, everyday smoker * CXR and CT chest with mild emphysema changes. admit to regular medical floor * Continue scheduled short-acting bronchodilators every 4 hours and p.r.n. breathing treatments every 2 hours * Continue Methylprednisolone 20 mg IV push q.6 hours, day 6 of systemic steroids. Will defer to Pulmonology for steroid dosing. IV steroids being weaned by pulmonology. * smoking cessation counseling given. * On empiric antibiotics as above. * Pulmonology following. (3) Tobacco dependence: Code(s): F17.200 - Nicotine dependence, unspecified, uncomplicated Status: Chronic Assessment and Plan: Smoking cessation counseling given. (4) History of multiple sclerosis: Code(s): G35 - Multiple sclerosis Status: Chronic Assessment and Plan: H/O MS, not in acute exacerbation. had been treated with Tecfidera twice daily until mid December of 2021 (5) Cephalic vein thrombosis: Code(s): I82.619 - Acute embolism and thrombosis of superficial veins of unspecified upper extremity Status: Acute Assessment and Plan: Patient complained of tenderness, redness, swelling and heat to left forearm as well as right upper extremity/axillary region tenderness to palpation without skin changes. Left forearm had previous IV that was removed today. * Venous Doppler bilateral upper extremities shows bilateral cephalic vein thrombosis. * Will continue conservative care. Elevate affected extremities,
--- NOTE | 2022-06-23 11:55 | PM.DS ---
DS: Admitting Diagnosis Discharge Date 06/23/22 1155 Admitting Diagnosis COPD with acute exacerbation, presumed Tobacco dependence Acute respiratory failure with hypoxia DS: Discharge Diagnosis Discharge Diagnosis (1) Acute respiratory failure with hypoxia: Code(s): J96.01 - Acute respiratory failure with hypoxia Status: Acute Assessment and Plan: Presented to the ED with c/o SOB and cough. He reports recent sick contacts. He required 2-4 L supplemental O2 and was transferred to IMU for worsening dyspnea. Presumed secondary to acute viral infection/bronchitis, severe bronchospasm and presumed underlying COPD with smoking history and mild emphysema noted on CXR. CT chest abdomen and pelvis no acute findings. CTA negative for acute PE. d-dimer 0.28 Chest x-ray showed no acute pulmonary disease. BNP 283, troponin negative, EKG sinus tach with possible LAE and incomplete RBBB Echocardiogram with normal LV systolic function, hyperdynamic EF 70%, ungraded diastolic dysfunction. Procalcitonin 0.1. Sputum culture ordered but unable to be obtained to date due to lack of sputum. COVID19, RSV, Influenza A/B negative. Strep PCR negative. 06/19/22 Repeat influenza A/B, RSV and COVID19 negative. 06/16/22 ABG critical values: PO2 46.3, O2 sat 81.3, oxyhemoglobin 81.4 ---patient on 4 L of O2 Continue empiric antibiotics- currently IV Rocephin, started 06/16, and IV azithromycin, started 06/17. He has been afebrile since admission. Improving leukocytosis. antibiotic day 5 azithromycin and day 7 Rocephin. 06/21 azithromycin. Discontinued after 5 days IV treatment. IV vancomycin stopped 06/17. MRSA nasal swab negative suggesting MRSA pneumonia unlikely. Pulmonology following and appreciate recommendations. Supportive care. Wean O2 to keep sats>92%. (2) COPD with acute exacerbation: Code(s): J44.1 - Chronic obstructive pulmonary disease with (acute) exacerbation Status: Acute Assessment and Plan: Presumed underlying COPD. No PFTs available and he does not endorse prior history, however, he is a current, everyday smoker CXR and CT chest with mild emphysema changes. admit to regular medical floor Continue scheduled short-acting bronchodilators every 4 hours and p.r.n. breathing treatments every 2 hours Continue Methylprednisolone 20 mg IV push q.6 hours, day 6 of systemic steroids. Will defer to Pulmonology for steroid dosing. IV steroids being weaned by pulmonology. smoking cessation counseling given. On empiric antibiotics as above. Pulmonology following. (3) Tobacco dependence: Code(s): F17.200 - Nicotine dependence, unspecified, uncomplicated Status: Chronic Assessment and Plan: Smoking cessation counseling given. (4) History of multiple sclerosis: Code(s): G35 - Multiple sclerosis Status: Chronic Assessment and Plan: H/O MS, not in acute exacerbation. had been treated with Tecfidera twice daily until mid December of 2021 (5) Cephalic vein thrombosis: Code(s): I82.619 - Acute embolism and thrombosis of superficial veins of unspecified upper extremity Status: Acute Assessment and Plan: Patient complained of tenderness, redness, swelling and heat to left forearm as well as right upper extremity/axillary region tenderness to palpation without skin changes. Left forearm had previous IV that was removed today. Venous Doppler bilateral upper extremities shows bilateral cephalic vein thrombosis. Will continue conservative care. Elevate affected extremities, ibuprofen 600 mg p.o. x1, trial warm compresses or ice packs as patient tolerates. Will defer anticoagulation as this is a superficial venous thrombosis and generally not recommended unless to lower extremities. patient is on DVT prophylaxis Lovenox subQ DS: Summary Hospital Course Reason for hospitalization: Shortness of breath Hospital Course: Fuentes Yañez is a 56-
== END 2022-06-23 14:35 | disposition home or self-care (01) | DRG 202 ==
LOC: ANH2MED 06:01 → ANHIMU 14:37 → ANH2MED 06-20 15:05
PROVIDERS: Internal Medicine Critical Care Medicine; Internal Medicine Pulmonary Disease; Student in an Organized Health Care Education/Training Program; Admitting Provider Internal Medicine; Visit Provider Nurse Practitioner Family
DX: J20.8 Acute bronchitis due to other specified organisms (principal); J96.01 Acute respiratory failure with hypoxia; I82.613 Acute embolism and thrombosis of superficial veins of upper extremity, bilateral; J43.9 Emphysema, unspecified; G35 Multiple sclerosis; F17.210 Nicotine dependence, cigarettes, uncomplicated; Z20.822 Contact with and (suspected) exposure to COVID-19
CPT/HCPCS: 36415; 36600; 71045; 71250; 71275; 74176; 80048; 80053; 80202; 81001; 82805; 83605; 83880; 84145; 84484; 85025; 85055; 85380; 87040; 87081; 87502; 87634; 87636; 87651; 93005; 93306; 93970; 94618; 94640; 94667; 94668; 94762; A9270; J0456; J0696; J1650; J1956; J2060; J2405; J2920; J2930; J3370; J7030; Q9967; U0003; U0005